=== PATIENT | male | born 1960 | race Caucasian/White ===

== ENCOUNTER 2023-04-27 01:00 | Inpatient (IN) | payer MEDICARE, MEDICAID, SELFPAY ==
[2023-04-27] VITALS (48 sets, daily range): BP systolic 127–179; BP diastolic 88–113; PULSE 82–106; RESP 18–33; TEMP 36.3–36.8; O2SAT 90–100; BMI 45.4
--- NOTE | 2023-04-27 | ECHO_ITS ---
Patient Info Name: Cyrus Harris Age: 62 years : 1960 Gender: Male Ht: 68 in Wt: 298 lbs BSA: 2.62 m2 HR: 78 bpm BP: 152 / 95 mmHg Heart Rhythm: Sinus Rhythm Technical Quality: Poor Exam Date: 04/27/2023 12:16 PM Exam Location: Echo Lab Exam Room: ICU9 Patient Status: Inpatient Admit Date: 04/27/2023 Staff Ordering Physician: Hien Zamora Tour Production Supervisor: Pham Pierce RDCS Attending Provider: Albert Sandoval MD Referring Physician: Sera MATUTE; Exam Type: CA echo dop color flow w con Study Info Indications - STEMI Complete two-dimensional, color flow and Doppler transthoracic echocardiogram is performed with contrast to opacify the left ventricle and to improve the deliniation of the left ventricle endocardial borders. Contrast/Agitated Saline Contrast/Ag. Saline: Definity Amount: 2.00 ml Administered By: Pham Pierce [facility] Existing IV Access: Yes IV Access Condition: patent with no signs of infiltration Reason for Poor Study: patient body habitus Summary 1. Technically difficultExam because of obesity, definity contrast utilizedTo improveExam quality. 2. SevereHypokinesis toNear akinesisOf the anteriorWallIn the midportion to the apexAs well as of the septum. 3. Moderately reduced global systolic function. 4. Grade 1 diastolic noncompliance. 5. No significant valvular dysfunction. Left Ventricle Left ventricular chamber dimension is normal. Left ventricular systolic function is mildly reduced, estimated at 35-40%. The left ventricular diastolic function is grade I diastolic dysfunction. Right Ventricle Right ventricular chamber dimension is normal. Left Atria Left atrial chamber dimension is normal. Right Atria Right atrial chamber dimension is normal. Aortic Valve The aortic valve is normal. Pulmonic Valve The pulmonic valve is not well visualized. Mitral Valve The mitral valve has normal leaflets. Tricuspid Valve The tricuspid valve leaflets are not well visualized. Pericardium/Pleural The pericardium appears normal. Aorta The aortic root size at the sinus of Valsalva is normal. Left Ventricular Outflow Tract Name Value Normal LVOT 2D LVOT Diameter 2.11 cm LVOT Doppler LVOT Peak Gradient 4 mmHg LVOT Mean Gradient 3 mmHg LVOT VTI 18.51 cm LVOT VTI/AV VTI Ratio 0.97 LVOT Stroke Volume 64.58 ml LVOT CO 16.16 l/min LVOT CI 6.17 L/min/m2 Pulmonic Valve Name Value Normal PV Doppler PV Peak Gradient 2 mmHg Mitral Valve Name Value Normal MV Dopp
--- NOTE | ~2023-04-27 | XR_ITS ---
XR chest 1V portable 05/03/2023 08:59 Indication: COPD exacerbation Procedure: AP portable chest Comparison: 04/29/2023 Findings: Developing left basilar airspace disease. No pleural effusion. No pneumothorax. The lungs a re hyperinflated which is consistent with, but not diagnostic of chronic obstructive pulmonary diseas e. There is 12 mm nodule in the left mid thorax. Impression: 1: Left basilar airspace disease may represent atelectasis or pneumonia. 2: Pulmonary nodule left mid thorax measuring 12 mm. Cannot exclude malignancy. Reviewed, dictated and finalized at location A. Impression: 1: Left basilar airspace disease may represent atelectasis or pneumonia. 2: Pulmonary nodule left mid thorax measuring 12 mm. Cannot exclude malignancy.
--- NOTE | ~2023-04-27 | XR_ITS ---
EXAMINATION: XR chest 1V portable INDICATION: Pacemaker insertion TECHNIQUE: Portable AP chest at 1511 hours COMPARISON: 05/03/2023 FINDINGS: The lungs are free of acute opacities. No pleural effusion or pneumothorax. A dual-lead car diac pacemaker of the left chest wall has been inserted which ends with leads in expected locations. A right internal jugular catheter is noted. The heart size is normal. IMPRESSION: 1. Dual-lead pacemaker insertion. No pneumothorax. Reviewed, dictated and finalized at location F.
--- NOTE | ~2023-04-27 | US_ITS ---
US venous doppler [facility] DATE: 04/28/2023 15:50 INDICATION: Bilateral lower extremity edema TECHNIQUE: Real-time and color flow imaging and Doppler analysis of the veins of both lower extremiti es COMPARISON: None FINDINGS: The greater saphenous veins are patent. There is spontaneous and phasic flow and normal aug mentation and color flow signal and normal compression of the deep veins of both lower extremities. IMPRESSION: No evidence of deep venous thrombosis of the lower extremities Reviewed, dictated and finalized at Location A. Reviewed, dictated and finalized at location L.
--- NOTE | ~2023-04-27 | CT_ITS ---
EXAMINATION: CTA chest PE protocol DATE: 05/01/2023 16:27 INDICATION: Shortness of breath TECHNIQUE: Computed tomography angiography (CTA) of the chest was performed with 100 mL Omnipaque-350 intravenous contrast timed to evaluate the pulmonary arteries. Coronal maximum intensity projection 3D-reconstructions were created by the technologist. The dose-length product (DLP) was 959.32 mGy-cm. Automated exposure control and iterative reconstruction technique were employed. COMPARISON: None. FINDINGS: The pulmonary arteries are well-opacified. No pulmonary embolism is identified. Respiratory motion slightly limits the examination. There is an 11 mm nodule of the left upper lobe. Emphysema i s noted in the lung apices. There are subpleural airspace opacities of the lingula. There is consolid ation medially in the left lower lobe. Mild dependent atelectasis is noted. No pleural effusion or pn eumothorax. The heart size is normal. IMPRESSION: 1. No pulmonary embolus identified. 2. Airspace opacities in the lingula and left lower lobe, consistent with pneumonia. 3. 11 mm nodule of the left upper lobe which may be infectious or inflammatory. Follow-up low-dose CT in three months is recommended. Reviewed, dictated and finalized at location F. IMPRESSION: 1. No pulmonary embolus identified. 2. Airspace opacities in the lingula and left lower lobe, consistent with pneum onia. 3. 11 mm nodule of the left upper lobe which may be infectious or inflammatory. Follow-up low-dose CT in three months is recommended.
--- NOTE | ~2023-04-27 | XR_ITS ---
EXAMINATION: XR chest 2V DATE: 05/05/2023 14:53 INDICATION: Pacemaker insertion TECHNIQUE: Frontal and lateral views of the chest are obtained COMPARISON: 05/04/2023 FINDINGS: There are minimal airspace opacities of the lung bases. No pleural effusion or pneumothorax . The right internal jugular catheter has been removed. The heart size is normal for technique. There is mild thoracic spondylosis. A dual-lead cardiac pacemaker of the left chest wall ends with leads i n expected locations. IMPRESSION: 1. Minimal bibasilar airspace opacities, consistent with atelectasis versus pneumonia. Reviewed, dictated and finalized at location F. IMPRESSION: 1. Minimal bibasilar airspace opacities, consistent with atelectasis versus pne umonia.
--- NOTE | ~2023-04-27 | XR_ITS ---
EXAMINATION: XR chest 1V portable DATE: 04/29/2023 12:36 INDICATION: Wheezing. Left ventricular dysfunction. TECHNIQUE: frontal view of the chest was obtained. COMPARISON: Chest radiograph dated 04/27/2023 FINDINGS: Increased airspace opacities in the left lower lung zone which could represent atelectasis or pneumon ia. Right lung remains clear. Increased lucency with architectural distortion at the upper lung zones suggestive of emphysema. No pleural effusion or pneumothorax. The cardiomediastinal silhouette is wi thin normal limits for AP technique. IMPRESSION: 1. New opacities in the left lower lung zone which could represent atelectasis or pneumonia. 2. Hyperlucency and architectural distortion at the upper lung zones suspicious for emphysema. Reviewed, dictated and finalized at location A.
--- NOTE | ~2023-04-27 | XR_ITS ---
EXAMINATION: XR chest 1V portable Exam Date/Time: 05/03/2023 14:20 CDT HISTORY: temp. pacer placement Comparison: 05/03/2023 at 8:53 AM. RESULT: Lines, tubes, and devices: Right IJ temporary pacer which appears to terminate over the left ventric le although determination is somewhat limited by overlapping wires. Lungs and pleura: Clear. Cardiomediastinal silhouette: Stable. Other: No acute osseous or upper abdominal finding. IMPRESSION: Right IJ temporary pacer. No acute cardiopulmonary process. Reviewed, dictated and finalized at location K.
--- NOTE | ~2023-04-27 | XR_ITS ---
Portable chest x-ray Comparison: None Clinical History: Myocardial infarction Findings: Questionable minimal basilar haziness. No pleural effusion or pneumothorax. Cardiomediast inal silhouette is unremarkable. Bones and soft tissues are unremarkable. Impression: Minimal bibasilar haziness. Correlate for minimal pulmonary edema or possibly mild interstitial umanzor es related to COPD. Reviewed, dictated and finalized at location . Impression: Minimal bibasilar haziness. Correlate for minimal pulmonary edema or possibly m ild interstitial changes related to COPD.
--- NOTE | 2023-04-27 01:01 | ECG_ITS ---
Measurements Intervals [place] Rate: 99 P: 55 DE: 124 QRS: 58 QRSD: 87 T: 39 QT: 358 QTc: 459 Interpretive Statements SINUS RHYTHM POSSIBLE LEFT ATRIAL ENLARGEMENT INCOMPLETE RIGHT BUNDLE BRANCH BLOCK ANTEROLATERAL ST ELEVATION MYOCARDIAL INFARCT- ACUTE HIGH LATERAL INFARCT, AGE INDETERMINATE ABNORMAL ECG NO PREVIOUS ECG AVAILABLE FOR COMPARISON Electronically Signed On 04-27-2023 6:37:25 CDT by Riaz Gonzalez D.O.
[2023-04-27] MEDS: ASPIRIN 81 MG CHEWABLE TABLET 324 MG PO (01:16)
--- NOTE | 2023-04-27 01:17 | ED.GENADULT ---
HPI - General Adult General Chief complaint: Chest Pain Stated complaint: Chest pain Time Seen by Provider: 04/27/23 01:03 History of Present Illness HPI narrative: Patient is a 62-year-old gentleman who presents emergency department with chief complaint of chest discomfort. The patient reports that he started having some discomfort this evening reports the pain was not improved by any of his home measures. The patient states his reported constant reports this is different than previous episodes. The patient reports pain radiates to his shoulder blades and down his arms patient does report that he feels a little short of breath with it. The patient reports he has history of hypertension and also takes a water pill due to some peripheral edema. Related Data Allergies Allergy/AdvReac Type Severity Reaction Status Date / Time No Known Allergies Allergy Verified 04/27/23 01:12 Review of Systems Review of Systems: A 10 system review of systems was completed on the patient and is negative except for what is stated in the HPI. Nursing and ancillary documentation was reviewed. Exam Narrative: GENERAL: Well-appearing, well-nourished, and in no acute distress. HEAD: Normocephalic, atraumatic. EYES: PERRLA and EOMI. ENT: Nares clear, no rhinorrhea or epistaxis. Mucous membranes moist. NECK: Supple. CHEST: Clear to auscultation. No respiratory distress. HEART: Regular rate and rhythm. No murmur heard. Normal peripheral pulses. ABDOMEN: Soft, nontender, nondistended, normal active bowel sounds. EXTREMITIES: Normal range of motion. 1+ edema. SKIN: Warm, dry, no rash. NEURO: No focal deficits. Alert and oriented x3. PSYCH: Normal mood and affect. Course Vital Signs Vital signs: Vital Signs Temperature 36.4 C L 04/27/23 01:06 Pulse Rate 100 04/27/23 01:06 Respiratory Rate 33 H 04/27/23 01:06 Blood Pressure 170/113 H 04/27/23 01:06 Pulse Oximetry 99 04/27/23 01:06 Oxygen Delivery Room Air 04/27/23 01:06 Temperature 36.4 C L 04/27/23 01:06 Pulse Rate 99 04/27/23 01:06 Respiratory Rate 33 H 04/27/23 01:06 Blood Pressure 170/113 H 04/27/23 01:06 Pulse Oximetry 98 04/27/23 01:06 Oxygen Delivery Room Air 04/27/23 01:06 Medical Decision Making MDM Narrative Medical decision making narrative: Differential diagnosis includes STEMI, non-STEMI, ACS, dysrhythmia, electrolyte abnormality, noncardiac chest pain EKG showed evidence of acute ST-elevation IA. Immediate notification of the STEMI pathway was started Dr. Huerta was contacted and the poultry farm laborer team has been contacted. The patient was given heparin bolus Brilinta aspirin Vital Signs Vital Signs: Vital Signs Temperature 36.4 C L 04/27/23 01:06 Pulse Rate 100 04/27/23 01:06 Respiratory Rate 33 H 04/27/23 01:06 Blood Pressure 170/113 H 04/27/23 01:06 Pulse Oximetry 99 04/27/23 01:06 Oxygen Delivery Room Air 04/27/23 01:06 Temperature 36.4 C L 04/27/23 01:06 Pulse Rate 99 04/27/23 01:06 Respiratory Rate 33 H 04/27/23 01:06 Blood Pressure 170/113 H 04/27/23 01:06 Pulse Oximetry 98 04/27/23 01:06 Oxygen Delivery Room Air 04/27/23 01:06 Critical Care Time Critical Care Time Critical Care Time: Yes Total Critical Care Time: 30 Discharge Plan Discharge Clinical Impression: Acute ST elevation myocardial infarction Patient Disposition: Still a Patient Condition: Stable Follow-up/Referrals: Eddie,Fernando Nicholas MD [Primary Care Provider] - Time of Disposition: :
[2023-04-27] MEDS: ONDANSETRON INJ 4 MG/2 ML VIAL IV PUSH (01:18)
[2023-04-27] MEDS: TICAGRELOR 90 MG TABLET 180 MG PO (01:18)
[2023-04-27] MEDS: SODIUM CHLORIDE 0.9% IV 1,000 ML 30 ML IV CONT (01:20)
[2023-04-27] MEDS: HEPARIN SODIUM 5,000 UNITS/ML VIAL 4000 UNITS IV PUSH (01:21)
[2023-04-27 01:25] LABS: Basophils Absolute Auto 0.1 K/mm3 (0.0-0.1); Basophils Percent Auto 0.6 % (0.2-1.2); Eosinophils Absolute Auto 0.4 K/mm3 (0-0.3); Hematocrit 54.7 % (42.0-52.0); Hemoglobin 17.7 g/dL (14.0-18.0); Immature Granulocyte Absolute 0.04 K/mm3 (0.00-0.031); Immature Granulocyte Percent A 0.3 % (0-0.5); Lymphocytes Absolute Auto 1.52 K/mm3 (0.9-3.2); Lymphocytes Percent Auto 12.8 % (18.3-44.2); Mean Corpuscular HGB Conc 32.4 g/dl (32-36); Mean Corpuscular Hemoglobin 27.3 pg (26-34); Mean Corpuscular Volume 84.3 fl (80-100); Mean Platelet Volume 10.5 fl (7.4-10.4); Monocytes Absolute Auto 0.6 K/mm3 (0.1-0.6); Monocytes Percent Auto 5.4 % (2.6-8.5); Neutrophils Absolute Auto 9.3 K/mm3 (1.3-6.7); Neutrophils Percent Auto 77.9 % (45.5-73.1); Platelet Count Result 213 k/mm3 (150-375); Red Blood Count 6.49 M/mm3 (4.6-6.20); Red Cell Distribution Width 14.9 % (11.5-14.5); White Blood Count 11.9 K/mm3 (4.5-10.0)
[2023-04-27] MEDS: MORPHINE SULFATE (*CRX) 2 MG/ML INJ IV PUSH (01:26)
[2023-04-27 01:36] LABS: INR 0.9; Prothrombin Time 12.6 Seconds (11.1-14.7)
[2023-04-27] MEDS: NITROGLYCERIN/D5W 200 MCG/ML 50 MG/250 ML BTL IV CONT (01:41)
[2023-04-27 02:13] LABS: Alanine Aminotransferase 34 U/L (6-50); Albumin Level 4.7 g/dL (3.5-5.1); Alkaline Phosphatase 87 U/L (38-126); Anion Gap 9 mmol/L (8-16); Aspartate Amino Transferase 39 U/L (17-59); Bilirubin,Total 0.6 mg/dL (0.2-1.3); Blood Urea Nitrogen 24 mg/dL (9-20); Calcium 9.4 mg/dL (8.4-10.2); Carbon Dioxide 27 mmol/L (22-30); Chloride 105 mmol/L (98-107); Estimated CRCL calculation 135 ml/min; Estimated Glomerular Filt Rate > 60; Glucose 140 mg/dL (65-110); Lipase 67 U/L (23-300); Potassium 4.2 mmol/L (3.4-5.0); Sodium 141 mmol/L (137-145)
--- NOTE | 2023-04-27 02:23 | SUR.OPER ---
Dr. Sandoval made aware of elevated Troponin during Cardiac Cath by Anny Vann RN on 04/27/2023 at 0224.
[2023-04-27 02:24] LABS: Troponin I 0.416 ng/mL (0.000-0.034)
--- NOTE | 2023-04-27 03:08 | ECG_ITS ---
Measurements Intervals [place] Rate: 105 P: 72 WA: 148 QRS: 85 QRSD: 94 T: 95 QT: 369 QTc: 488 Interpretive Statements SINUS TACHYCARDIA LOW QRS VOLTAGE IN PRECORDIAL LEADS ANTERIOR ST ELEVATION MYOCARDIAL INFARCT- ACUTE BASELINE ARTIFACT- V3-V6 ABNORMAL ECG COMPARED TO ECG 04/27/2023 01:10:[address] NOW PRESENT [address] ELEVATION IMPROVING Electronically Signed On 04-27-2023 6:42:07 CDT by Riaz Gonzalez D.O.
--- NOTE | 2023-04-27 03:12 | PM.IMHP ---
H&P: HPI History of Present Illness Date/Time: 04/27/23 03:12 Chief Complaint: chest pain Narrative: this is a 62-year-old man with history of hypertension presenting with acute chest pain in the middle the night. His electrocardiogram shows acute anterior wall current of injury. He reports no prior history of coronary artery disease. He states he is disabled and Smokes cigarettes. Remainder of the history is truncated as he is being prepared for emergency angiography Review of Systems Review of Systems: ROS unobtainable: Yes unobtainable due to medical condition Meds Home Medications and Allergies Allergies Allergy/AdvReac Type Severity Reaction Status Date / Time No Known Allergies Allergy Verified 04/27/23 01:12 Vital Signs Vital Signs - 24 hr 04/27/23 01:06 04/27/23 01:06 04/27/23 01:06 Temperature 36.4 C L Pulse Rate 100 99 Respiratory Rate 33 H Blood Pressure 170/113 H Pulse Oximetry 99 98 Oxygen Delivery Room Air Room Air 04/27/23 01:41 04/27/23 01:29 Temperature Pulse Rate 96 98 Respiratory Rate 25 H Blood Pressure 179/113 H Pulse Oximetry 100 Oxygen Delivery Exam Const: Other: obese white male in moderate distress with chest pain HENMT: Mouth: Yes moist mucous membranes Eyes: Sclera: sclerae normal Neck: Neck: supple Other: carotid pulses are intact bilaterally JVD is difficult to discern because of obesity Resp: Effort & Inspection: normal respiratory effort Auscultation: clear to auscultation bilaterally Other: breath sounds are distant but essentially clear Cardio: Rate: regular rate Rhythm: regular rhythm Other: PMI is not palpable no audible murmur or gallop GI: GI Palp: Yes Soft to palpation Auscultation: normal bowel sounds Skin: General skin exam: normal color Neuro: Other: alert and oriented x3 Extrem: Other: adequate perfusion, mild peripheral edema H&P: Results Labs Labs: Short CBC 04/27/23 Range/Units 01:20 WBC 11.9 H (4.5-10.0) K/mm3 Hgb 17.7 (14.0-18.0) g/dL Hct 54.7 H (42.0-52.0) % Plt Count 213 (150-375) k/mm3 [facility] 04/27/23 01:20 Sodium 141 Potassium 4.2 Chloride 105 Carbon Dioxide 27 BUN 24 H Creatinine 0.70 Glucose 140 H Calcium 9.4 Cardiac Enzymes 04/27/23 04/27/23 Range/Units 01:20 01:25 Troponin I 0.416 H* Cancelled (0.000-0.034) ng/mL Liver Function 04/27/23 Range/Units 01:20 Total Bilirubin 0.6 (0.2-1.3) mg/dL AST 39 (17-59) U/L ALT 34 (6-50) U/L Alkaline Phosphatase 87 (38-126) U/L Albumin 4.7 (3.5-5.1) g/dL Assessment and Plan Assessment and plan (1) Acute ST elevation myocardial infarction: Code(s): I21.3 - ST elevation (STEMI) myocardial infarction of unspecified site Status: Acute Plan this is a 62-year-old obese gentleman tobacco smoker who presents in the middle night with chest pain and acute anterior wall ME. Preparations are being made for emergency angiography and revascularization. Albert Sandoval MD FACC
--- NOTE | 2023-04-27 03:15 | WPDCARDPROC ---
Cardiac Cath Procedure Note Date of procedure:: 04/27/23 Performing physician:: Albert Sandoval MD Indication:: acute anterior wall FL Brief clinical history:: this is a 62-year-old man with hypertension obesity and cigarette smoking. He presents in the middle night with chest pain and acute anterior wall infarction Procedure Procedure performed:: emergency coronary angiography emergency PCI(KELLY) to the LAD Sedation/Medication given:: fentanyl 50 mg Versed 2 mg case start time 2:15 a.m. case end time 2:56 a.m. sedation provided by Willow Alexander RN, trained observer Access site:: right femoral artery Estimated blood loss:: 30 cc Procedure note:: patient was brought to the cardiac catheterization lab in the emergency setting and the right femoral triangle was prepped and draped in the usual fashion. Anesthesia was provided with 1% lidocaine infiltrated locally. Using the modified Seldinger technique the right femoral artery was punctured and a 6 [place] vascular sheath was placed. After this I used a 6 [place] JL4 guiding catheter to engage and inject the left coronary artery in multiple projections. PCI of the proximal LAD was then recommended and carried out as detailed below. The patient had received aspirin 180 mg of Brilinta in the emergency department. He received no additional anti-platelet therapy in the photographic laboratory supervisor. He was anticoagulated with bolus and infusion of Angiomax for this PCI. Following completion of left anterior descending intervention is detailed below they guiding catheter was removed and a 5 [place] JR4 catheter used to engage and inject the right coronary artery in orthogonal projections. The procedure was then terminated and the sheath was sutured into position the patient was taken to the ICU for post FL /PCI recovery. Findings:: Hemodynamics: Central aortic pressure was 138/84, left ventricle was not entered during this procedure the left main coronary artery is large in caliber and widely patent the LAD is a large caliber vessel which is 100% occluded proximal. The circumflex is a moderate to large caliber vessel giving rise to the large OM branch and a smaller posterior system. The circumflex has no significant disease. The right coronary artery is medium in caliber and dominant to the posterior circulation. The right coronary artery is free of disease. Intervention: The was wired using a 0.014 BMW coronary guidewire. As the vessel was occluded it was initially unclear as to the position of the wire distally in the true LAD or in a diagonal branch. The occluded segment was then pre-dilated using a 2.5 x 25 mm Panterra balloon. Following this inflation there was SONYA 3 flow restored in the LAD and it was clear the wire was in the LAD proper. This was a fairly long lesion this was a large vessel it was then dilated with a 3.5 by 30 mm balloon of the same type. The target lesion was then improved there was evidence of a visible dissection flap but distal to the target lesion following this inflation. After this a series of stents were placed from the mid LAD back to the proximal as follows: 3.5 by 35, 3.5 x 30, 4.0 x 30. All Plasticell drug-eluting stents. Following deployment of these devices the LAD was widely patent with an excellent angiographic result no residual stenosis dissection or distal embolization and there was SONYA 3 flow in the entire vessel. There is mild to moderate stenosis at the origin the proximal diagonal branch which was in the area stented this is remains patent with SONYA 3 flow in it following stenting of the LAD. Conclusion:: 1. Right coronary dominant circulation presenting with acute anterior wall FL with 100% proximal occlusion of the large LAD. 2. No significant circumflex or right coronary disease 3. successful but somewhat challenging revascularization requiring 3 drug-eluting stents from the midportion of the LAD back to the
[2023-04-27 05:00] LABS: Anion Gap 6 mmol/L (8-16); Blood Urea Nitrogen 22 mg/dL (9-20); Carbon Dioxide 30 mmol/L (22-30); Chloride 104 mmol/L (98-107); Cholesterol 231 mg/dL (0-200); Estimated CRCL calculation 135 ml/min; Estimated Glomerular Filt Rate > 60; Glucose 141 mg/dL (65-110); HDL Direct 34 mg/dL; Potassium 3.8 mmol/L (3.4-5.0); Sodium 140 mmol/L (137-145); Triglycerides 122 mg/dL (<150)
[2023-04-27 05:02] LABS: INR 3.4; Prothrombin Time 36.8 Seconds (11.1-14.7)
[2023-04-27 05:04] LABS: Partial Thromboplastin Time 127.3 Seconds (22.3-36.8)
[2023-04-27 05:11] LABS: LDL Cholesterol Direct 162 mg/dL
[2023-04-27] MEDS: IPRATROPIUM 0.5 MG/ALBUTEROL SULFATE 2.5 MG AMPUL.NEB 3 ML INHALATION ×3 (07:26→20:20)
[2023-04-27] MEDS: SODIUM CHLORIDE 0.9% IV 1,000 ML 125 ML IV CONT (07:46)
--- NOTE | 2023-04-27 07:51 | ADMGEN ---
This patient, Cyrus Harris, was admitted to Intensive Care Unit-9 at 0315. Patient/family oriented to hospital policies and general routines including ID bracelet, bed and alarms, visiting hours, pain management, procedures, bathroom and other care routines, personal items, smoking policy, room service/diet, and visiting hours. Information on how to activate the Rapid Response Team has been discussed. Patient/Family are encouraged to report perceived risks to care and to ask questions if they do not understand what they are told or what they should do.
[2023-04-27 07:56] LABS: Troponin I > 80.000 ng/mL (0.000-0.034)
[2023-04-27 09:08] LABS: NT Pro B Type Natriuretic Pept 1650 pg/mL (19.9-100)
--- NOTE | 2023-04-27 09:12 | PM.PNCARD ---
Progress Note: A&P Assessment and Plan (1) Acute ST elevation myocardial infarction: Code(s): I21.3 - ST elevation (STEMI) myocardial infarction of unspecified site Status: Acute Assessment and Plan: Presents with chest pain and EKG evidence of acute anterior wall CA. angiogram revealed right coronary dominant circulation with 100% proximal occlusion of the large LAD. He is now s/p PCI to the LAD with KELLY x 3 from the midportion of the LAD back to the proximal segment of the artery to cover the lesion as well as ensure treating a dissection flap that was resulting from the initial pre dilatation of the target lesion. Echo shows overall mildly reduced LV systolic function with EF 35 - 40% with severe hypokinesis to near akinesis of the anterior wall in the midportion to the apex as well as of the septum. Grade I diastolic dysfunction. --DAPT with ASA in definitely and Brilinta for one year --Continue beta robert, ARB --Will increase losartan to 50mg daily as he remains hypertensive --Continue statin --Risk factor modification for CAD including immediate smoking cessation --Referral to cardiac rehab --Anticipate another 48 hours in the hospital --OK to downgrade to IMU status today (2) CAD (coronary artery disease): Code(s): I25.10 - Atherosclerotic heart disease of [place] coronary artery without angina pectoris Status: Acute Assessment and Plan: As above. Continue DAPT, statin. (3) Lower extremity edema: Code(s): R60.0 - Localized edema Status: Acute Assessment and Plan: States this has been persistent for ~5 years. --IV furosemide and GENARO hose. (4) Hypertension: Code(s): I10 - Essential (primary) hypertension Status: Acute Assessment and Plan: --Increase losartan to 50mg daily and coreg to 12.5mg b.i.d. --add smlodipine 5mg daily (5) Smoking: Code(s): F17.200 - Nicotine dependence, unspecified, uncomplicated Status: Acute Assessment and Plan: Smoking cessation Plan Subjective Date/time seen: 04/27/23 09:12 Interval history: Cardiology follow up for CAD, STEMI Feels well this morning. Echo just performed. Denies any chest pain. Has some shortness of breath and edema but no different than his baseline. Review of Systems Review of Systems: ROS unobtainable: Yes unobtainable due to medical condition Exam Const: Other: obese white male lying comfortably in bed in the ICU HENMT: Mouth: Yes moist mucous membranes Eyes: Sclera: sclerae normal Neck: Neck: supple Other: carotid pulses are intact bilaterally JVD is difficult to discern because of obesity Resp: Effort & Inspection: normal respiratory effort Auscultation: not clear to auscultation bilaterally and wheezes Cardio: Rate: regular rate Rhythm: regular rhythm Other: PMI is not palpable no audible murmur or gallop GI: Auscultation: normal bowel sounds Skin: General skin exam: normal color Neuro: Other: alert and oriented x3 Extrem: Other: adequate perfusion, mild peripheral edema Objective Data Vital Signs Vital Signs: Vital Signs - 24 hr 04/27/23 01:06 04/27/23 01:06 04/27/23 01:06 Temperature 36.4 C L Pulse Rate 100 99 Pulse Rate [Bilateral Pedal (Dorsalis Pedis) Doppler] Respiratory Rate 33 H Blood Pressure 170/113 H Pulse Oximetry 99 98 Oxygen Delivery Room Air Room Air Oxygen Flow Rate 04/27/23 01:41 04/27/23 01:29 04/27/23 03:17 Temperature Pulse Rate 96 98 101 H Pulse Rate [Bilateral Pedal (Dorsalis Pedis) Doppler] Respiratory Rate 25 H 24 H Blood Pressure 179/113 H 152/109 H Pulse Oximetry 100 94 Oxygen Delivery Oxygen Flow Rate 04/27/23 03:30 04/27/23 04:07 04/27/23 04:15 Temperature Pulse Rate 102 H 102 H Pulse Rate [Bilateral Pedal (Dorsalis Pedis) Doppler] Respiratory Rate 24 H 20 Blood Pressure 147/91 H 139/95 H Pulse Ox
[2023-04-27 09:37] LABS: MRSA (PCR) NOT DETECTED (NOT DETECTE)
--- NOTE | 2023-04-27 09:45 | WPDCNINT ---
Assessment and Plan Assessment and plan (1) Acute ST elevation myocardial infarction: Code(s): I21.3 - ST elevation (STEMI) myocardial infarction of unspecified site Status: Acute Assessment and Plan: Anterior wall STEMI status post cardiac catheterization Conclusion:: 1.? ? Right coronary dominant circulation presenting with acute anterior wall MS with 100% proximal occlusion of the large LAD. 2.? ? No significant circumflex or right coronary disease 3. ? successful but somewhat challenging revascularization requiring 3 drug-eluting stents from the midportion of the LAD back to the proximal segment of the artery to cover the lesion as well as ensure treating a dissection flap that was resulting from the initial pre dilatation of the target lesion. Aspirin Crestor Brilinta Coreg losartan development vice president Check echocardiogram Consult and encouraged to quit smoking (2) COPD exacerbation: Code(s): J44.1 - Chronic obstructive pulmonary disease with (acute) exacerbation Status: Acute Assessment and Plan: Patient clearly has undiagnosed COPD from his exam, imaging and constant coughing. He appears to be in a COPD exacerbation Will start scheduled bronchodilator and prednisone taper Hold further fluids (3) Smoking: Code(s): F17.200 - Nicotine dependence, unspecified, uncomplicated Status: Acute Assessment and Plan: Patient smokes 2-4 packs a day and has been smoking for 50 years. Patient was strongly counseled and encouraged to quit smoking (4) Hypertension: Code(s): I10 - Essential (primary) hypertension Status: Acute Assessment and Plan: Patient restarted on Coreg losartan (5) Lower extremity edema: Code(s): R60.0 - Localized edema Status: Acute Assessment and Plan: I suspect patient has pulmonary hypertension and cor pulmonale from extensive smoking He has lower extremity edema BNP 1650 Check echocardiogram Hold further IV fluids Will hold diuresis at this time since patient has received significant amount. Will start Lasix from tomorrow Plan DVT prophylaxis -Lovenox Nutrition -heart healthy diet Code Status - Full Code Track Broom Operator Consult Note Consult date: 04/27/23 Reason for consult: STEMI HPI: Cyrus Harris is a 62 year old male history of hypertension, sciatica, heavy tobacco abuse and chronic lower extremity edema presented yesterday to ER with chief complaint of pain in his chest. Chest pain started around 9:30 p.m.. Burning sensation in the middle of chest with radiation to back and both arms, 10/10 severe, associated with shortness of breath and nausea but no vomiting. Review of system was also positive for chronic cough and lower extremity swelling which is also chronic. Denies any other complaints. All other systems were reviewed and were negative In ER patient was found to be having anterior wall ST segment elevation MS. Patient was taken to cardiac catheterization lab and underwent cardiac catheterization which showed Conclusion:: 1.? ? Right coronary dominant circulation presenting with acute anterior wall MS with 100% proximal occlusion of the large LAD. 2.? ? No significant circumflex or right coronary disease 3. ? successful but somewhat challenging revascularization requiring 3 drug-eluting stents from the midportion of the LAD back to the proximal segment of the artery to cover the lesion as well as ensure treating a dissection flap that was resulting from the initial pre dilatation of the target lesion. This morning he states the pain significantly improved although not completely gone away and rates it / Review of Systems Review of Systems: All systems reviewed & are unremarkable except as noted in HPI and below (HPI) [facility] Past Medical History Medical History Hypertension Lower extremity edema Sciatic nerve pain Smoking Family History Family History (Updated 04/27/23 @ 05:27 by Fanny
[2023-04-27] MEDS: LOSARTAN POTASSIUM 25 MG TABLET PO (10:12)
[2023-04-27] MEDS: ASPIRIN 81 MG CHEWABLE TABLET PO (10:12)
[2023-04-27] MEDS: predniSONE 10 MG TABLET 30 MG PO (10:12)
[2023-04-27] MEDS: carvediloL 6.25 MG TABLET PO (10:12)
[2023-04-27] MEDS: TICAGRELOR 90 MG TABLET PO ×2 (10:13→21:13)
[2023-04-27] MEDS: ROSUVASTATIN 10 MG TABLET 20 MG PO (10:13)
[2023-04-27] MEDS: ENOXAPARIN 40 MG/0.4 ML SYRINGE SUB-Q (10:28)
[2023-04-27 11:20] LABS: Troponin I > 80.000 ng/mL (0.000-0.034)
[2023-04-27] MEDS: PERFLUTREN LIPID MICROSPHERES 1.5 ML VIAL DILUTED TO 10 ML TOTAL VOLUME IV PUSH (11:50)
--- NOTE | 2023-04-27 15:14 | IVDEFINITY ---
Prior to administration of IV Definity the patient was educated on the risks and benefits of the imaging enhancing agent including potential adverse side effects. The patient verbalized understanding. Allergies were verified. No exclusion criteria were identified and at least one of the following inclusion criteria were met: 1) physician request, 2) patient technically difficult to image (per the [place] [employer]chocardi[employer] guidelines of two or more segments not discernable within the apical view), or 3) questionable left ventricular function. ?
[2023-04-27] MEDS: amLODIPine BESYLATE 5 MG TABLET PO (17:12)
[2023-04-27] MEDS: carvediloL 12.5 MG TABLET PO (21:13)
[2023-04-28] VITALS (26 sets, daily range): BP systolic 95–150; BP diastolic 58–96; PULSE 80–105; RESP 20–35; TEMP 36.6–36.8; O2SAT 88–96
[2023-04-28] MEDS: IPRATROPIUM 0.5 MG/ALBUTEROL SULFATE 2.5 MG AMPUL.NEB 3 ML INHALATION ×6 (01:18→23:33)
[2023-04-28 04:35] LABS: Hematocrit 53.1 % (42.0-52.0); Hemoglobin 17.1 g/dL (14.0-18.0); Mean Corpuscular HGB Conc 32.2 g/dl (32-36); Mean Corpuscular Hemoglobin 27.6 pg (26-34); Mean Corpuscular Volume 85.6 fl (80-100); Mean Platelet Volume 9.8 fl (7.4-10.4); Platelet Count Result 197 k/mm3 (150-375); White Blood Count 14.7 K/mm3 (4.5-10.0)
[2023-04-28 05:13] LABS: Alanine Aminotransferase 81 U/L (6-50); Albumin Level 4.2 g/dL (3.5-5.1); Alkaline Phosphatase 89 U/L (38-126); Anion Gap 5 mmol/L (8-16); Aspartate Amino Transferase 175 U/L (17-59); Bilirubin,Total 0.8 mg/dL (0.2-1.3); Blood Urea Nitrogen 18 mg/dL (9-20); Calcium 9.2 mg/dL (8.4-10.2); Carbon Dioxide 34 mmol/L (22-30); Chloride 103 mmol/L (98-107); Estimated CRCL calculation 125 ml/min; Estimated Glomerular Filt Rate > 60; Glucose 109 mg/dL (65-110); Magnesium 2.3 mg/dL (1.6-2.3); Potassium 3.5 mmol/L (3.4-5.0); Sodium 142 mmol/L (137-145)
[2023-04-28] MEDS: carvediloL 12.5 MG TABLET PO ×2 (09:03→21:08)
[2023-04-28] MEDS: ROSUVASTATIN 10 MG TABLET 20 MG PO (09:03)
[2023-04-28] MEDS: ASPIRIN 81 MG CHEWABLE TABLET PO (09:03)
[2023-04-28] MEDS: amLODIPine BESYLATE 5 MG TABLET PO (09:03)
[2023-04-28] MEDS: ENOXAPARIN 40 MG/0.4 ML SYRINGE SUB-Q (09:03)
[2023-04-28] MEDS: FUROSEMIDE INJ 40 MG/4 ML VIAL IV PUSH (09:04)
[2023-04-28] MEDS: predniSONE 10 MG TABLET 30 MG PO (09:04)
[2023-04-28] MEDS: TICAGRELOR 90 MG TABLET PO ×2 (09:04→21:08)
--- NOTE | 2023-04-28 11:27 | PM.PNCARD ---
Progress Note: A&P Assessment and Plan (1) Acute ST elevation myocardial infarction: Code(s): I21.3 - ST elevation (STEMI) myocardial infarction of unspecified site Status: Acute Assessment and Plan: Presents with chest pain and EKG evidence of acute anterior wall NC. angiogram revealed right coronary dominant circulation with 100% proximal occlusion of the large LAD. He is now s/p PCI to the LAD with KELLY x 3 from the midportion of the LAD back to the proximal segment of the artery to cover the lesion as well as ensure treating a dissection flap that was resulting from the initial pre dilatation of the target lesion. Echo shows overall mildly reduced LV systolic function with EF 35 - 40% with severe hypokinesis to near akinesis of the anterior wall in the midportion to the apex as well as of the septum. Grade I diastolic dysfunction. --DAPT with ASA in definitely and Brilinta for one year --Continue beta robert, ARB --Continue statin --Risk factor modification for CAD including immediate smoking cessation --Referral to cardiac rehab --Mobilize patient out of bed to the chair today --Anticipate another 24 hours in the hospital (2) CAD (coronary artery disease): Code(s): I25.10 - Atherosclerotic heart disease of [place] coronary artery without angina pectoris Status: Acute Assessment and Plan: As above. Continue DAPT, statin. (3) Lower extremity edema: Code(s): R60.0 - Localized edema Status: Acute Assessment and Plan: States this has been persistent for ~5 years. --IV furosemide and GENARO hose. (4) Hypertension: Code(s): I10 - Essential (primary) hypertension Status: Acute Assessment and Plan: --Increase losartan to 50mg daily and coreg to 12.5mg b.i.d. --add smlodipine 5mg daily (5) Smoking: Code(s): F17.200 - Nicotine dependence, unspecified, uncomplicated Status: Acute Assessment and Plan: Smoking cessation Plan Placed consult for hospitalist for COPD management Subjective Date/time seen: 04/28/23 11:27 Interval history: Cardiology follow up for CAD, STEMI Feels well this morning. Echo just performed. Denies any chest pain. Has some shortness of breath and edema but no different than his baseline. Date of service 04/28/2023: Feels okay this morning. Does not have any specific cardiovascular complaints. Review of Systems Review of Systems: ROS unobtainable: Yes unobtainable due to medical condition Exam Const: Other: obese white male lying comfortably in bed in the ICU HENMT: Mouth: Yes moist mucous membranes Eyes: Sclera: sclerae normal Neck: Neck: supple Other: carotid pulses are intact bilaterally JVD is difficult to discern because of obesity Resp: Effort & Inspection: normal respiratory effort and tachypneic Auscultation: not clear to auscultation bilaterally and wheezes anterior and posterior Cardio: Rate: regular rate Rhythm: regular rhythm Other: PMI is not palpable no audible murmur or gallop GI: Auscultation: normal bowel sounds Urinary Catheter: Urinary Catheter: patent and draining Skin: General skin exam: normal color Other: R groin arterial access site free from hematoma Neuro: Other: alert and oriented x3 Extrem: Other: adequate perfusion, mild peripheral edema Objective Data Vital Signs Vital Signs: Vital Signs - 24 hr 04/27/23 12:00 04/27/23 13:18 04/27/23 13:30 Temperature 36.3 C L Pulse Rate 94 97 90 Respiratory Rate 25 H 30 H 23 H Blood Pressure 127/109 H Pulse Oximetry 93 Oxygen Delivery Oxygen Flow Rate 04/27/23 14:00 04/27/23 12:15 04/27/23 12:00 Temperature Pulse Rate 87 97 93 Respiratory Rate 20 20 Blood Pressure 148/109 H 140/90 Pulse Oximetry 93 93 Oxygen Delivery Oxygen Flow Rate 04/27/23 14:00 04/27/23 12:00 04/27/23 16:00 Temperature 36.3 C L Pulse Ra
[2023-04-28] MEDS: LOSARTAN POTASSIUM 50 MG TABLET PO (11:36)
--- NOTE | 2023-04-28 14:22 | WPDCN ---
Assessment and Plan Assessment and plan (1) COPD exacerbation: Code(s): J44.1 - Chronic obstructive pulmonary disease with (acute) exacerbation Status: Acute Assessment and Plan: Clinically the patient has evidence of COPD with exacerbation though has not been formally diagnosed. Continue scheduled bronchodilators and prednisone taper. Mucinex and Cornet ordered to help mobilize secretions. Encouraged follow-up with pulmonology when he returns home. (2) Acute ST elevation myocardial infarction: Onset Date: 04/27/23 Code(s): I21.3 - ST elevation (STEMI) myocardial infarction of unspecified site Status: Acute Assessment and Plan: Patient presented to the ED with chest pain for several hours, found to have ST elevations in V2 through V6. Status post drug-eluting stent x3 to the LAD complicated by dissection flap from dilatation. Started on dual anti-platelet therapy (aspirin and ticagrelor), statin, and beta-robert. (3) Coronary artery disease: Onset Date: 04/2023 Code(s): I25.10 - Atherosclerotic heart disease of [place] coronary artery without angina pectoris Status: Acute Assessment and Plan: Plan is as detailed above. (4) Ischemic cardiomyopathy: Onset Date: 04/2023 Code(s): I25.5 - Ischemic cardiomyopathy Status: Acute Assessment and Plan: Echo: EF of 35 to 40%, hypokinesis to near akinesis of the anterior wall, grade 1 diastolic dysfunction. Started on carvedilol, furosemide, losartan per Cardiology. Lasix 40 mg IV daily for edema with close monitoring of volume status, renal function, and electrolytes. (5) Lower extremity edema: Code(s): R60.0 - Localized edema Status: Acute Assessment and Plan: Chronic for least 5 years per patient report. Due to a combination of obesity, sedentary lifestyle, and diastolic dysfunction. Continue diuresing with Lasix 40 mg daily. Encouraged elevation of lower extremities as much as possible. Lower extremity venous Doppler ultrasounds ordered to rule out DVT. (6) Hypertension: Code(s): I10 - Essential (primary) hypertension Status: Acute Assessment and Plan: Blood pressures were reviewed and they have been running in the 120s to 140s today. Continue amlodipine 5 mg daily, carvedilol 6.25 mg q.12 hours, and losartan 50 mg daily. Continue to monitor closely and make adjustments depending on trends. (7) Tobacco dependence: Code(s): F17.200 - Nicotine dependence, unspecified, uncomplicated Status: Acute Assessment and Plan: He smokes between 2 to 4 packs of cigarettes a day and has for 50 years! Smoking cessation is imperative and was discussed with the patient. He is motivated quit smoking and reports that his girlfriend is also going to try to quit. Plan Thank you for allowing us to participate in this patient's care. Please do not hesitate to contact us with any questions. HPI Data of Consult Date/Time: 04/28/23 15:00 Requesting Physician: Albert Sandoval MD Consult Narrative Reason for consult: Medical management. Narrative: This is a 62-year-old male smoker with suspected chronic obstructive pulmonary disease and hypertension whom the hospitalist service has been consulted for help managing his medical conditions. He was admitted to the hospital early yesterday morning through the emergency department with an acute anterior wall ST-elevation myocardial infarction after presenting with several hours of chest pain. He was taken to the prosthetic lab technician where he was found to have 100% proximal occlusion the LAD status post 3 drug-eluting stents. Revascularization was complicated by a small dissection flap resulting from initial predilatation of the lesion. He has been without chest pain and is doing well in that regard. He reports nearly constant coughing the last couple of days, much worse than his inductor tester
[2023-04-28] MEDS: guaiFENesin 12 HR 600 MG TABCR 1200 MG PO (21:08)
[2023-04-29] VITALS (28 sets, daily range): BP systolic 119–156; BP diastolic 83–93; PULSE 80–99; RESP 17–33; TEMP 36.3–36.8; O2SAT 91–99
[2023-04-29] MEDS: IPRATROPIUM 0.5 MG/ALBUTEROL SULFATE 2.5 MG AMPUL.NEB 3 ML INHALATION ×6 (04:11→23:29)
[2023-04-29 05:12] LABS: Hematocrit 53.1 % (42.0-52.0); Mean Corpuscular Hemoglobin 27.6 pg (26-34); Mean Corpuscular Volume 86.3 fl (80-100); Mean Platelet Volume 10.2 fl (7.4-10.4); Platelet Count Result 214 k/mm3 (150-375); Red Blood Count 6.15 M/mm3 (4.6-6.20); White Blood Count 14.7 K/mm3 (4.5-10.0)
[2023-04-29 05:18] LABS: Alanine Aminotransferase 60 U/L (6-50); Albumin Level 4.2 g/dL (3.5-5.1); Alkaline Phosphatase 81 U/L (38-126); Anion Gap 3 mmol/L (8-16); Aspartate Amino Transferase 67 U/L (17-59); Bilirubin,Total 0.8 mg/dL (0.2-1.3); Blood Urea Nitrogen 23 mg/dL (9-20); Calcium 9.2 mg/dL (8.4-10.2); Carbon Dioxide 37 mmol/L (22-30); Chloride 99 mmol/L (98-107); Estimated CRCL calculation 110 ml/min; Estimated Glomerular Filt Rate > 60; Glucose 110 mg/dL (65-110); Magnesium 2.3 mg/dL (1.6-2.3); Potassium 3.7 mmol/L (3.4-5.0); Sodium 139 mmol/L (137-145)
[2023-04-29] MEDS: ASPIRIN 81 MG CHEWABLE TABLET PO (09:25)
[2023-04-29] MEDS: predniSONE 10 MG TABLET 30 MG PO (09:25)
[2023-04-29] MEDS: carvediloL 12.5 MG TABLET PO ×2 (09:26→21:17)
[2023-04-29] MEDS: LOSARTAN POTASSIUM 50 MG TABLET PO (09:26)
[2023-04-29] MEDS: FUROSEMIDE INJ 40 MG/4 ML VIAL IV PUSH (09:26)
[2023-04-29] MEDS: TICAGRELOR 90 MG TABLET PO ×2 (09:26→21:17)
[2023-04-29] MEDS: ROSUVASTATIN 10 MG TABLET 20 MG PO (09:26)
[2023-04-29] MEDS: ENOXAPARIN 40 MG/0.4 ML SYRINGE SUB-Q (09:26)
[2023-04-29] MEDS: guaiFENesin 12 HR 600 MG TABCR 1200 MG PO ×2 (09:26→21:17)
[2023-04-29] MEDS: amLODIPine BESYLATE 5 MG TABLET PO (09:26)
--- NOTE | 2023-04-29 13:53 | P.PNIM_ITS ---
Progress Note: A&P Assessment and Plan (1) Pneumonia: Code(s): J18.9 - Pneumonia, unspecified organism Status: Acute Assessment and Plan: [place] is [place] 7 [place] [address] Cxr shows BL opacities Plan BC today Start iv zosyn and iv vancomycin D/w cardiology (2) COPD exacerbation: Code(s): J44.1 - Chronic obstructive pulmonary disease with (acute) exacerbation Status: Acute Assessment and Plan: Clinically the patient has evidence of COPD with exacerbation though has not been formally diagnosed. * Continue scheduled bronchodilators and prednisone taper. * Mucinex and Cornet ordered to help mobilize secretions. * pt will benefit from home oxygen assessment prior to Dc (3) Acute ST elevation myocardial infarction: Onset Date: 04/27/23 Code(s): I21.3 - ST elevation (STEMI) myocardial infarction of unspecified site Status: Acute Assessment and Plan: Patient presented to the ED with chest pain for several hours, found to have ST elevations in V2 through V6. * Status post drug-eluting stent x3 to the LAD complicated by dissection flap f rom dilatation. * Started on dual anti-platelet therapy (aspirin and ticagrelor), statin, and beta-robert. (4) Coronary artery disease: Onset Date: 04/2023 Code(s): I25.10 - Atherosclerotic heart disease of [place] coronary artery without angina pectoris Status: Acute Assessment and Plan: Plan is as detailed above. (5) Ischemic cardiomyopathy: Onset Date: 04/2023 Code(s): I25.5 - Ischemic cardiomyopathy Status: Acute Assessment and Plan: Echo: EF of 35 to 40%, hypokinesis to near akinesis of the anterior wall, grade 1 diastolic dysfunction. * Started on carvedilol, furosemide iv + losartan per Cardiology. * (6) Lower extremity edema: Code(s): R60.0 - Localized edema Status: Acute Assessment and Plan: Chronic for least 5 years per patient report. Due to a combination of obesity, sedentary lifestyle, and diastolic dysfunction. * Continue diuresing with Lasix 40 mg daily IV * Encouraged elevation * Venous dopplers are negative (7) Hypertension: Code(s): I10 - Essential (primary) hypertension Status: Acute Assessment and Plan: Blood pressures are stable * Continue amlodipine 5 mg daily, carvedilol 6.25 mg q.12 hours, and losartan 50 mg daily. pt also on iv lasix * continue present care (8) Tobacco dependence: Code(s): F17.200 - Nicotine dependence, unspecified, uncomplicated Status: Acute Assessment and Plan: He smokes between 2 to 4 packs of cigarettes a day and has for 50 years! * Smoking cessation is imperative and was discussed with the patient. * He is motivated quit smoking and reports that his girlfriend is also going to try to quit. Plan Thank you for allowing us to participate in this patient's care. Please do not hesitate to contact us with any questions. Subjective Date/time seen: 04/29/23 13:53 Interval history: 62-year-old male smoker with suspected chronic obstructive pulmonary disease and hypertension whom the hospitalist service has been consulted for help managing his medical conditions. He was admitted to the hospital early yesterday morning through the emergency department with an acute anterior wall ST-elevation myocardial infarction afte
--- NOTE | 2023-04-29 13:53 | PM.IMPN ---
Progress Note: A&P Assessment and Plan (1) Pneumonia: Code(s): J18.9 - Pneumonia, unspecified organism Status: Acute Assessment and Plan: Pt is on 7 [place] [id number] Cxr shows BL opacities Plan BC today Start iv zosyn and iv vancomycin D/w cardiology (2) COPD exacerbation: Code(s): J44.1 - Chronic obstructive pulmonary disease with (acute) exacerbation Status: Acute Assessment and Plan: Clinically the patient has evidence of COPD with exacerbation though has not been formally diagnosed. Continue scheduled bronchodilators and prednisone taper. Mucinex and Cornet ordered to help mobilize secretions. pt will benefit from home oxygen assessment prior to Dc (3) Acute ST elevation myocardial infarction: Onset Date: 04/27/23 Code(s): I21.3 - ST elevation (STEMI) myocardial infarction of unspecified site Status: Acute Assessment and Plan: Patient presented to the ED with chest pain for several hours, found to have ST elevations in V2 through V6. Status post drug-eluting stent x3 to the LAD complicated by dissection flap from dilatation. Started on dual anti-platelet therapy (aspirin and ticagrelor), statin, and beta-robert. (4) Coronary artery disease: Onset Date: 04/2023 Code(s): I25.10 - Atherosclerotic heart disease of [place] coronary artery without angina pectoris Status: Acute Assessment and Plan: Plan is as detailed above. (5) Ischemic cardiomyopathy: Onset Date: 04/2023 Code(s): I25.5 - Ischemic cardiomyopathy Status: Acute Assessment and Plan: Echo: EF of 35 to 40%, hypokinesis to near akinesis of the anterior wall, grade 1 diastolic dysfunction. Started on carvedilol, furosemide iv + losartan per Cardiology. (6) Lower extremity edema: Code(s): R60.0 - Localized edema Status: Acute Assessment and Plan: Chronic for least 5 years per patient report. Due to a combination of obesity, sedentary lifestyle, and diastolic dysfunction. Continue diuresing with Lasix 40 mg daily IV Encouraged elevation Venous dopplers are negative (7) Hypertension: Code(s): I10 - Essential (primary) hypertension Status: Acute Assessment and Plan: Blood pressures are stable Continue amlodipine 5 mg daily, carvedilol 6.25 mg q.12 hours, and losartan 50 mg daily. pt also on iv lasix continue present care (8) Tobacco dependence: Code(s): F17.200 - Nicotine dependence, unspecified, uncomplicated Status: Acute Assessment and Plan: He smokes between 2 to 4 packs of cigarettes a day and has for 50 years! Smoking cessation is imperative and was discussed with the patient. He is motivated quit smoking and reports that his girlfriend is also going to try to quit. Plan Thank you for allowing us to participate in this patient's care. Please do not hesitate to contact us with any questions. Subjective Date/time seen: 04/29/23 13:53 Interval history: 62-year-old male smoker with suspected chronic obstructive pulmonary disease and hypertension whom the hospitalist service has been consulted for help managing his medical conditions. He was admitted to the hospital early yesterday morning through the emergency department with an acute anterior wall ST-elevation myocardial infarction after presenting with several hours of chest pain. He was taken to the hoisting laborer where he was found to have 100% proximal occlusion the LAD status post 3 drug-eluting stents. Revascularization was complicated by a small dissection flap resulting from initial predilatation of the lesion. He has been without chest pain and is doing well in that regard. He reports nearly constant coughing the last couple of days, much worse than his chronic, smoker's cough. Pt had emergent heart cath and 3 stents placed unfortunately pt appears sob with cough
--- NOTE | 2023-04-29 14:10 | PM.PNCARD ---
Progress Note: A&P Assessment and Plan (1) Acute ST elevation myocardial infarction: Onset Date: 04/27/23 Code(s): I21.3 - ST elevation (STEMI) myocardial infarction of unspecified site Status: Acute Assessment and Plan: Presents with chest pain and EKG evidence of acute anterior wall LA. angiogram revealed right coronary dominant circulation with 100% proximal occlusion of the large LAD. He is now s/p PCI to the LAD with KELLY x 3 from the midportion of the LAD back to the proximal segment of the artery to cover the lesion as well as ensure treating a dissection flap that was resulting from the initial pre dilatation of the target lesion. Echo shows overall mildly reduced LV systolic function with EF 35 - 40% with severe hypokinesis to near akinesis of the anterior wall in the midportion to the apex as well as of the septum. Grade I diastolic dysfunction. --DAPT with ASA in definitely and Brilinta for one year. Counseled patient that stopping either these agents early may result in stent thrombosis, LA, heart damage and . --Continue beta robert, ARB --Continue statin --Risk factor modification for CAD including immediate smoking cessation --Referral to cardiac rehab --Anticipate another 24 hours in the hospital --EKG in a.m. (new baseline) --ProBNP in a.m. --Check CXR due to SOB to see if any CHF. Findings: 1. New opacities in the left lower lung zone which could represent atelectasis or pneumonia. 2. Hyperlucency and architectural distortion at the upper lung zones suspicious for emphysema. Personally reviewed, no impressive for any CHF (2) CAD (coronary artery disease): Code(s): I25.10 - Atherosclerotic heart disease of [place] coronary artery without angina pectoris Status: Acute Assessment and Plan: As above. Continue DAPT, statin. (3) Lower extremity edema: Code(s): R60.0 - Localized edema Status: Acute Assessment and Plan: States this has been persistent for ~5 years. --IV furosemide and GENARO hose. (4) Hypertension: Code(s): I10 - Essential (primary) hypertension Status: Acute Assessment and Plan: --Increasee losartan to 50mg daily and coreg to 12.5mg b.i.d. --added amlodipine 5mg daily --improving (5) Smoking: Code(s): F17.200 - Nicotine dependence, unspecified, uncomplicated Status: Acute Assessment and Plan: Smoking cessation counseling. Patient states he intends to quit smoking. (6) COPD exacerbation: Code(s): J44.1 - Chronic obstructive pulmonary disease with (acute) exacerbation Status: Acute Assessment and Plan: Still requiring O2, not in shape for discharge today. CXR shows poss PNA; Dr. Shahid has added antibiotics. Plan Subjective Date/time seen: 04/29/23 14:10 Interval history: Cardiology follow up for CAD, STEMI Feels well this morning. Echo just performed. Denies any chest pain. Has some shortness of breath and edema but no different than his baseline. Date of service 04/28/2023: Feels okay this morning. Does not have any specific cardiovascular complaints. Date of service 04/29/2023: Patient states he feels ?the same. ? States he is always wheezy and his breathing is about normal for him. Later he admitted that he was more labored than usual. No chest pain. O2 sats are in the upper 80s when he is speaking, still requiring O2 nasal cannula, now up to 7 L. Telemetry: NSR. Review of Systems Review of Systems: No chest pain, dizziness. Complains of dry mouth, mild cough, labored breathing. No bleeding. Thinks edema has improved. Exam Const: General: cooperative and in distress (Patient appeared tachypneic using some accessory muscles of breathing); No confusion Orientation/consciousness: oriented to person, patient oriented x3 and No confusion HENMT: Mouth: Yes moist mucous membranes Eyes: General: appearance normal, both
[2023-04-29 16:16] LABS: MRSA (PCR) NOT DETECTED (NOT DETECTE)
[2023-04-29] MEDS: PIPERACILLN/TAZ 3.375GM/NS50ML 3.375 GM/50 ML BAG IVPB ×2 (17:14→21:17)
[2023-04-29] MEDS: VANCOMYCIN 1,250 MG/NS 250 ML 1,250 MG/250 ML BAG 166.67 MG IVPB ×2 (17:50→19:00)
[2023-04-30] VITALS (30 sets, daily range): BP systolic 123–148; BP diastolic 81–89; PULSE 72–97; RESP 17–75; TEMP 36.4–36.7; O2SAT 90–100
[2023-04-30] MEDS: PIPERACILLN/TAZ 3.375GM/NS50ML 3.375 GM/50 ML BAG IVPB ×4 (01:30→17:05)
[2023-04-30] MEDS: VANCOMYCIN 1,500 MG/NS 500 ML 1,500 MG/500 ML BAG 250 MG IVPB (02:52)
[2023-04-30] MEDS: IPRATROPIUM 0.5 MG/ALBUTEROL SULFATE 2.5 MG AMPUL.NEB 3 ML INHALATION ×6 (03:30→23:46)
[2023-04-30 04:32] LABS: Hematocrit 49.4 % (42.0-52.0); Mean Corpuscular HGB Conc 32.4 g/dl (32-36); Mean Corpuscular Hemoglobin 27.6 pg (26-34); Mean Corpuscular Volume 85.2 fl (80-100); Mean Platelet Volume 10.2 fl (7.4-10.4); Platelet Count Result 204 k/mm3 (150-375); Red Cell Distribution Width 14.8 % (11.5-14.5); White Blood Count 13.6 K/mm3 (4.5-10.0)
[2023-04-30 04:45] LABS: Alanine Aminotransferase 55 U/L (6-50); Albumin Level 3.9 g/dL (3.5-5.1); Alkaline Phosphatase 76 U/L (38-126); Anion Gap 2 mmol/L (8-16); Aspartate Amino Transferase 43 U/L (17-59); Blood Urea Nitrogen 30 mg/dL (9-20); Calcium 8.6 mg/dL (8.4-10.2); Carbon Dioxide 34 mmol/L (22-30); Chloride 102 mmol/L (98-107); Estimated CRCL calculation 82 ml/min; Estimated Glomerular Filt Rate > 60; Glucose 118 mg/dL (65-110); Magnesium 2.3 mg/dL (1.6-2.3); Potassium 3.2 mmol/L (3.4-5.0); Sodium 138 mmol/L (137-145)
[2023-04-30 04:51] LABS: NT Pro B Type Natriuretic Pept 1420 pg/mL (19.9-100)
[2023-04-30] MEDS: ALBUTEROL SULFATE (*SP) AEROSOL 1 PUFF 2 PUFF INHALATION ×2 (06:32→21:07)
--- NOTE | 2023-04-30 08:00 | ECG_ITS ---
Measurements Intervals Christine Rate: 84 P: 52 KS: 125 QRS: 82 QRSD: 97 T: 47 QT: 362 QTc: 428 Interpretive Statements SINUS RHYTHM POSSIBLE LEFT ATRIAL ENLARGEMENT CANNOT RULE OUT SEPTAL INFARCT, AGE INDETERMINATE ANTEROLATERAL ST ELEVATION MYOCARDIAL INFARCT- RECENT BASELINE ARTIFACT- I, II, III, AVR, AVL, AVF, V1, V3-V6 ABNORMAL ECG COMPARED TO ECG 04/27/2023 03:37:04 SIN[address] NOW PRESENT [address] ELEVATION IMPROVING Electronically Signed On 04-30-2023 8:15:50 CDT by Riaz Gonzalez D.O.
[2023-04-30] MEDS: ASPIRIN 81 MG CHEWABLE TABLET PO (08:40)
[2023-04-30] MEDS: ENOXAPARIN 40 MG/0.4 ML SYRINGE SUB-Q (08:40)
[2023-04-30] MEDS: carvediloL 12.5 MG TABLET PO ×2 (08:40→20:27)
[2023-04-30] MEDS: amLODIPine BESYLATE 5 MG TABLET PO (08:40)
[2023-04-30] MEDS: ROSUVASTATIN 10 MG TABLET 20 MG PO (08:40)
[2023-04-30] MEDS: POTASSIUM CHLORIDE 20 MEQ ER TABLET 40 MEQ PO ×2 (08:41→17:04)
[2023-04-30] MEDS: predniSONE 10 MG TABLET 30 MG PO (08:41)
[2023-04-30] MEDS: guaiFENesin 12 HR 600 MG TABCR 1200 MG PO ×2 (08:41→20:27)
[2023-04-30] MEDS: TICAGRELOR 90 MG TABLET PO ×2 (08:41→20:27)
[2023-04-30] MEDS: LOSARTAN POTASSIUM 50 MG TABLET PO (08:41)
[2023-04-30] MEDS: FUROSEMIDE INJ 40 MG/4 ML VIAL IV PUSH (08:41)
--- NOTE | 2023-04-30 09:10 | PM.PNCARD ---
Progress Note: A&P Assessment and Plan (1) Acute ST elevation myocardial infarction: Onset Date: 04/27/23 Code(s): I21.3 - ST elevation (STEMI) myocardial infarction of unspecified site Status: Acute Assessment and Plan: Presents with chest pain and EKG evidence of acute anterior wall [place]. angiogram revealed right coronary dominant circulation with 100% proximal occlusion of the large LAD. He is now s/p PCI to the LAD with KELLY x 3 from the midportion of the LAD back to the proximal segment of the artery to cover the lesion as well as ensure treating a dissection flap that was resulting from the initial pre dilatation of the target lesion. Echo shows overall mildly reduced LV systolic function with EF 35 - 40% with severe hypokinesis to near akinesis of the anterior wall in the midportion to the apex as well as of the septum. Grade I diastolic dysfunction. --DAPT with ASA in definitely and Brilinta for one year. --Continue beta robert, ARB --Continue statin --Risk factor modification for CAD including immediate smoking cessation --Referral to cardiac rehab (2) CAD (coronary artery disease): Code(s): I25.10 - Atherosclerotic heart disease of [place] coronary artery without angina pectoris Status: Acute Assessment and Plan: As above. Continue DAPT, statin. (3) Lower extremity edema: Code(s): R60.0 - Localized edema Status: Acute Assessment and Plan: States this has been persistent for ~5 years. Improving. --IV furosemide and GENARO hose. (4) Hypertension: Code(s): I10 - Essential (primary) hypertension Status: Acute Assessment and Plan: Presented with uncontrolled HTN --Increased losartan to 50mg daily and coreg to 12.5mg b.i.d. --added amlodipine 5mg daily --improving (5) Smoking: Code(s): F17.200 - Nicotine dependence, unspecified, uncomplicated Status: Acute Assessment and Plan: Smoking cessation counseling. Patient states he intends to quit smoking. (6) COPD exacerbation: Code(s): J44.1 - Chronic obstructive pulmonary disease with (acute) exacerbation Status: Acute Assessment and Plan: Still requiring O2, not in shape for discharge today. CXR shows poss PNA; abx have been started Plan Subjective Date/time seen: 04/30/23 09:10 Interval history: Cardiology follow up for CAD, STEMI Feels well this morning. Echo just performed. Denies any chest pain. Has some shortness of breath and edema but no different than his baseline. Date of service 04/28/2023: Feels okay this morning. Does not have any specific cardiovascular complaints. Date of service 04/29/2023: Patient states he feels ?the same. ? States he is always wheezy and his breathing is about normal for him. Later he admitted that he was more labored than usual. No chest pain. O2 sats are in the upper 80s when he is speaking, still requiring O2 nasal cannula, now up to 7 L. Telemetry: NSR. Date of service 04/30/2023: He feels well today. Still tachypneic and requiring supplemental O2, 5L. Doesn't feel short of breath. No chest pain. Review of Systems Review of Systems: No chest pain, dizziness. Complains of dry mouth, mild cough, labored breathing. No bleeding. Thinks edema has improved. ROS unobtainable: Yes unobtainable due to medical condition Neurologic: Denies confusion Psychiatric: Psychiatric: Denies confusion Exam Const: General: cooperative and in distress (Patient appeared tachypneic using some accessory muscles of breathing); No confusion Orientation/consciousness: oriented to person, patient oriented x3 and No confusion Other: obese white male lying comfortably in bed in the ICU HENMT: Mouth: Yes moist mucous membranes Eyes: General: appearance normal, both eyes and all related structures Sclera: sclerae normal Neck: Neck: supple and no JVD Other: bazan
[2023-04-30] MEDS: SALINE 0.65% NAS SOLN 44 ML BTL 1 SPRAY NASAL (12:53)
--- NOTE | 2023-04-30 15:47 | P.PNIM_ITS ---
Progress Note: A&P Assessment and Plan (1) Pneumonia: Code(s): J18.9 - Pneumonia, unspecified organism Status: Acute Assessment and Plan: Pt is [place] 5 [place] [id number] Cxr shows BL opacities continue iv zosyn D/w cardiology follow BC (2) COPD exacerbation: Code(s): J44.1 - Chronic obstructive pulmonary disease with (acute) exacerbation Status: Acute Assessment and Plan: Clinically the patient has evidence of COPD with exacerbation though has not been formally diagnosed. * Continue scheduled bronchodilators and prednisone taper. * Mucinex and Cornet ordered to help mobilize secretions. * pt will benefit from home oxygen assessment prior to Dc (3) Acute ST elevation myocardial infarction: Onset Date: 04/27/23 Code(s): I21.3 - ST elevation (STEMI) myocardial infarction of unspecified site Status: Acute Assessment and Plan: Patient presented to the ED with chest pain for several hours, found to have ST elevations in V2 through V6. * Status post drug-eluting stent x3 to the LAD complicated by dissection flap from dilatation. * Started on dual anti-platelet therapy (aspirin and ticagrelor), statin, and beta-robert. (4) Coronary artery disease: Onset Date: 04/2023 Code(s): I25.10 - Atherosclerotic heart disease of [place] coronary artery without angina pectoris Status: Acute Assessment and Plan: Plan is as detailed above. (5) Ischemic cardiomyopathy: Onset Date: 04/2023 Code(s): I25.5 - Ischemic cardiomyopathy Status: Acute Assessment and Plan: Echo: EF of 35 to 40%, hypokinesis to near akinesis of the anterior wall, grade 1 diastolic dysfunction. * Started on carvedilol +lasix + losartan per Cardiology. * (6) Lower extremity edema: Code(s): R60.0 - Localized edema Status: Acute Assessment and Plan: Chronic for least 5 years per patient report. Due to a combination of obesity, sedentary lifestyle, and diastolic dysfunction. * Continue diuresing with Lasix was transitioned to oral pills * Encouraged elevation * Venous dopplers are negative (7) Hypertension: Code(s): I10 - Essential (primary) hypertension Status: Acute Assessment and Plan: Blood pressures are stable * Continue amlodipine 5 mg daily, carvedilol 6.25 mg q.12 hours, and losartan 50 mg daily. and oral lasix * continue present care (8) Tobacco dependence: Code(s): F17.200 - Nicotine dependence, unspecified, uncomplicated Status: Acute Assessment and Plan: He smokes between 2 to 4 packs of cigarettes a day and has for 50 years! * Smoking cessation is discussed with pt Plan Subjective Date/time seen: 04/30/23 15:47 Interval history: 62-year-old male smoker with suspected chronic obstructive pulmonary disease and hypertension whom the hospitalist service has been consulted for help managing his medical conditions. He was admitted to the hospital early yesterday morning through the emergency department with an acute anterior wall ST-elevation myocardial infarction after presenting with several hours of chest pain. He was taken to the [facility] where he was found to have 100% proximal occlusion the LAD status post 3 drug-eluting stents. Revascularization was complicated by a small dissection flap resulting from initial predilata
--- NOTE | 2023-04-30 15:47 | PM.IMPN ---
Progress Note: A&P Assessment and Plan (1) Pneumonia: Code(s): J18.9 - Pneumonia, unspecified organism Status: Acute Assessment and Plan: Pt is on 5 [place] [address] Cxr shows BL opacities continue iv zosyn D/w cardiology follow BC (2) COPD exacerbation: Code(s): J44.1 - Chronic obstructive pulmonary disease with (acute) exacerbation Status: Acute Assessment and Plan: Clinically the patient has evidence of COPD with exacerbation though has not been formally diagnosed. Continue scheduled bronchodilators and prednisone taper. Mucinex and Cornet ordered to help mobilize secretions. pt will benefit from home oxygen assessment prior to Dc (3) Acute ST elevation myocardial infarction: Onset Date: 04/27/23 Code(s): I21.3 - ST elevation (STEMI) myocardial infarction of unspecified site Status: Acute Assessment and Plan: Patient presented to the ED with chest pain for several hours, found to have ST elevations in V2 through V6. Status post drug-eluting stent x3 to the LAD complicated by dissection flap from dilatation. Started on dual anti-platelet therapy (aspirin and ticagrelor), statin, and beta-robert. (4) Coronary artery disease: Onset Date: 04/2023 Code(s): I25.10 - Atherosclerotic heart disease of [place] coronary artery without angina pectoris Status: Acute Assessment and Plan: Plan is as detailed above. (5) Ischemic cardiomyopathy: Onset Date: 04/2023 Code(s): I25.5 - Ischemic cardiomyopathy Status: Acute Assessment and Plan: Echo: EF of 35 to 40%, hypokinesis to near akinesis of the anterior wall, grade 1 diastolic dysfunction. Started on carvedilol +lasix + losartan per Cardiology. (6) Lower extremity edema: Code(s): R60.0 - Localized edema Status: Acute Assessment and Plan: Chronic for least 5 years per patient report. Due to a combination of obesity, sedentary lifestyle, and diastolic dysfunction. Continue diuresing with Lasix was transitioned to oral pills Encouraged elevation Venous dopplers are negative (7) Hypertension: Code(s): I10 - Essential (primary) hypertension Status: Acute Assessment and Plan: Blood pressures are stable Continue amlodipine 5 mg daily, carvedilol 6.25 mg q.12 hours, and losartan 50 mg daily. and oral lasix continue present care (8) Tobacco dependence: Code(s): F17.200 - Nicotine dependence, unspecified, uncomplicated Status: Acute Assessment and Plan: He smokes between 2 to 4 packs of cigarettes a day and has for 50 years! Smoking cessation is discussed with pt Plan Subjective Date/time seen: 04/30/23 15:47 Interval history: 62-year-old male smoker with suspected chronic obstructive pulmonary disease and hypertension whom the hospitalist service has been consulted for help managing his medical conditions. He was admitted to the hospital early yesterday morning through the emergency department with an acute anterior wall ST-elevation myocardial infarction after presenting with several hours of chest pain. He was taken to the lab technician where he was found to have 100% proximal occlusion the LAD status post 3 drug-eluting stents. Revascularization was complicated by a small dissection flap resulting from initial predilatation of the lesion. He has been without chest pain and is doing well in that regard. He reports nearly constant coughing the last couple of days, much worse than his chronic, smoker's cough. 04/28 Pt had emergent heart cath and 3 stents placed unfortunately pt appears sob with cough today Cxr ordered showing BL pneumonia I will order BC and order IV abx Continue breathing treatments 04/29 Continue present care with iv zosyn [facility] Bc negative to date Pt still coughing with mild sob on 5 liters of oxygen Pt dangelo
[2023-05-01] VITALS (23 sets, daily range): BP systolic 114–163; BP diastolic 62–104; PULSE 74–97; RESP 16–26; TEMP 36.1–36.6; O2SAT 90–97
[2023-05-01] MEDS: PIPERACILLN/TAZ 3.375GM/NS50ML 3.375 GM/50 ML BAG IVPB ×4 (00:32→17:33)
[2023-05-01] MEDS: IPRATROPIUM 0.5 MG/ALBUTEROL SULFATE 2.5 MG AMPUL.NEB 3 ML INHALATION ×4 (03:40→21:40)
--- NOTE | 2023-05-01 03:43 | PCRCNOTE ---
Pt unable to do Apnea Link at this time. Pt on 5l/m HFNC. Pt is very short of breath. Pt gets treatments Q4hr and pt calls for Inhaler in between scheduled treatments. Plus, pt didn't sleep all night long.
[2023-05-01 04:38] LABS: Hematocrit 50.1 % (42.0-52.0); Hemoglobin 16.1 g/dL (14.0-18.0); Mean Corpuscular HGB Conc 32.1 g/dl (32-36); Mean Corpuscular Hemoglobin 27.5 pg (26-34); Mean Corpuscular Volume 85.5 fl (80-100); Mean Platelet Volume 10.7 fl (7.4-10.4); Platelet Count Result 223 k/mm3 (150-375); Red Blood Count 5.86 M/mm3 (4.6-6.20); Red Cell Distribution Width 14.8 % (11.5-14.5); White Blood Count 12.4 K/mm3 (4.5-10.0)
[2023-05-01 04:54] LABS: Alanine Aminotransferase 60 U/L (6-50); Albumin Level 4.2 g/dL (3.5-5.1); Alkaline Phosphatase 78 U/L (38-126); Anion Gap 2 mmol/L (8-16); Aspartate Amino Transferase 37 U/L (17-59); Bilirubin,Total 0.8 mg/dL (0.2-1.3); Blood Urea Nitrogen 30 mg/dL (9-20); Calcium 9.1 mg/dL (8.4-10.2); Carbon Dioxide 33 mmol/L (22-30); Chloride 105 mmol/L (98-107); Estimated CRCL calculation 82 ml/min; Estimated Glomerular Filt Rate > 60; Glucose 124 mg/dL (65-110); Magnesium 2.5 mg/dL (1.6-2.3); Potassium 3.5 mmol/L (3.4-5.0); Sodium 140 mmol/L (137-145)
--- NOTE | 2023-05-01 07:36 | PC.NURSE ---
This patient, Cyrus Harris, was transferred to [facility] on 05/01/23 at 0700. Personal belongings sent with patient. Report given to KEENAN Dangelo. Appropriate documentation sent with patient.
--- NOTE | 2023-05-01 08:39 | PM.PNCARD ---
Progress Note: A&P Assessment and Plan (1) Acute ST elevation myocardial infarction: Onset Date: 04/27/23 Code(s): I21.3 - ST elevation (STEMI) myocardial infarction of unspecified site Status: Acute Assessment and Plan: Presents with chest pain and EKG evidence of acute anterior wall [place]. angiogram revealed right coronary dominant circulation with 100% proximal occlusion of the large LAD. He is now s/p PCI to the LAD with KELLY x 3 from the midportion of the LAD back to the proximal segment of the artery to cover the lesion as well as ensure treating a dissection flap that was resulting from the initial pre dilatation of the target lesion. Echo shows overall mildly reduced LV systolic function with EF 35 - 40% with severe hypokinesis to near akinesis of the anterior wall in the midportion to the apex as well as of the septum. Grade I diastolic dysfunction. --DAPT with ASA in definitely and Brilinta for one year. --Continue beta robert, ARB --Continue statin --Risk factor modification for CAD including immediate smoking cessation --Referral to cardiac rehab --Anticipate discharge tomorrow, 05/01. (2) CAD (coronary artery disease): Code(s): I25.10 - Atherosclerotic heart disease of [place] coronary artery without angina pectoris Status: Acute Assessment and Plan: As above. Continue DAPT, statin. (3) Lower extremity edema: Code(s): R60.0 - Localized edema Status: Acute Assessment and Plan: States this has been persistent for ~5 years. Improving. --Will shift to p.o. furosemide --GENARO morris (4) Hypertension: Code(s): I10 - Essential (primary) hypertension Status: Acute Assessment and Plan: Presented with uncontrolled HTN --Remains elevated despite adjusting antihypertensive regimen --Continue losartan to 50mg daily --Increase coreg to 25mg b.i.d. (may want to consider adding a different agent and reducing BB in light of his (probably) significant CODP) --added amlodipine 5mg daily earlier this week, will increase to 10mg daily (5) Smoking: Code(s): F17.200 - Nicotine dependence, unspecified, uncomplicated Status: Acute Assessment and Plan: Smoking cessation counseling. Patient states he intends to quit smoking. (6) COPD exacerbation: Code(s): J44.1 - Chronic obstructive pulmonary disease with (acute) exacerbation Status: Acute Assessment and Plan: Pulmonology consulted for additional assistance with management, discussed with Dr. Lozano - appreciate recommendations Pulmonology not in house this weekend - plan for overnight oximetry to evaluate for nocturnal O2 needs. Dr. Murphy is senior production planner this weekend, please call her with questions regarding results/criteria for home O2/ordering home O2 that cannot be addressed by the hospitalist Plan Subjective Date/time seen: 05/01/23 08:39 Interval history: Cardiology follow up for CAD, STEMI Feels well this morning. Echo just performed. Denies any chest pain. Has some shortness of breath and edema but no different than his baseline. Date of service 04/28/2023: Feels okay this morning. Does not have any specific cardiovascular complaints. Date of service 04/29/2023: Patient states he feels ?the same. ? States he is always wheezy and his breathing is about normal for him. Later he admitted that he was more labored than usual. No chest pain. O2 sats are in the upper 80s when he is speaking, still requiring O2 nasal cannula, now up to 7 L. Telemetry: NSR. Date of service 05/01/2023: Doing better today, Off O2. No cardiovascular complaints. Eager to go home. Review of Systems Review of Systems: ROS unobtainable: Yes unobtainable due to medical condition Neurologic: Denies confusion Psychiatric: Psychiatric: Denies confusion Exam Const: General: cooperative and in distress (Patient appeared tachypneic using meka
[2023-05-01] MEDS: predniSONE 10 MG TABLET 30 MG PO (09:24)
[2023-05-01] MEDS: ENOXAPARIN 40 MG/0.4 ML SYRINGE SUB-Q (09:24)
[2023-05-01] MEDS: amLODIPine BESYLATE 5 MG TABLET PO (09:24)
[2023-05-01] MEDS: LOSARTAN POTASSIUM 50 MG TABLET PO (09:25)
[2023-05-01] MEDS: POTASSIUM CHLORIDE 20 MEQ ER TABLET 40 MEQ PO ×2 (09:25→16:54)
[2023-05-01] MEDS: carvediloL 12.5 MG TABLET PO (09:25)
[2023-05-01] MEDS: guaiFENesin 12 HR 600 MG TABCR 1200 MG PO ×2 (09:25→20:40)
[2023-05-01] MEDS: TICAGRELOR 90 MG TABLET PO ×2 (09:25→20:40)
[2023-05-01] MEDS: ROSUVASTATIN 10 MG TABLET 20 MG PO (09:25)
[2023-05-01] MEDS: ASPIRIN 81 MG CHEWABLE TABLET PO (09:25)
[2023-05-01] MEDS: FUROSEMIDE INJ 40 MG/4 ML VIAL IV PUSH (09:26)
--- NOTE | 2023-05-01 09:26 | PM.IMPN ---
Progress Note: A&P Assessment and Plan (1) Pneumonia: Code(s): J18.9 - Pneumonia, unspecified organism Status: Acute Assessment and Plan: Pt is on 5 [place] [address] Cxr shows BL opacities continue iv zosyn D/w cardiology follow BC (2) COPD exacerbation: Code(s): J44.1 - Chronic obstructive pulmonary disease with (acute) exacerbation Status: Acute Assessment and Plan: Clinically the patient has evidence of COPD with exacerbation though has not been formally diagnosed. Continue scheduled bronchodilators and prednisone taper. Mucinex and Cornet ordered to help mobilize secretions. pt will benefit from home oxygen assessment prior to Dc (3) Acute ST elevation myocardial infarction: Onset Date: 04/27/23 Code(s): I21.3 - ST elevation (STEMI) myocardial infarction of unspecified site Status: Acute Assessment and Plan: Patient presented to the ED with chest pain for several hours, found to have ST elevations in V2 through V6. Status post drug-eluting stent x3 to the LAD complicated by dissection flap from dilatation. Started on dual anti-platelet therapy (aspirin and ticagrelor), statin, and beta-robert. (4) Coronary artery disease: Onset Date: 04/2023 Code(s): I25.10 - Atherosclerotic heart disease of [place] coronary artery without angina pectoris Status: Acute Assessment and Plan: Plan is as detailed above. (5) Ischemic cardiomyopathy: Onset Date: 04/2023 Code(s): I25.5 - Ischemic cardiomyopathy Status: Acute Assessment and Plan: Echo: EF of 35 to 40%, hypokinesis to near akinesis of the anterior wall, grade 1 diastolic dysfunction. Started on carvedilol +lasix + losartan per Cardiology. (6) Lower extremity edema: Code(s): R60.0 - Localized edema Status: Acute Assessment and Plan: Chronic for least 5 years per patient report. Due to a combination of obesity, sedentary lifestyle, and diastolic dysfunction. Continue diuresing with Lasix was transitioned to oral pills Encouraged elevation Venous dopplers are negative (7) Hypertension: Code(s): I10 - Essential (primary) hypertension Status: Acute Assessment and Plan: Blood pressures are stable Continue amlodipine 5 mg daily, carvedilol 6.25 mg q.12 hours, and losartan 50 mg daily. and oral lasix continue present care (8) Tobacco dependence: Code(s): F17.200 - Nicotine dependence, unspecified, uncomplicated Status: Acute Assessment and Plan: He smokes between 2 to 4 packs of cigarettes a day and has for 50 years! Smoking cessation is discussed with pt Plan 62-year-old male smoker with suspected chronic obstructive pulmonary disease and hypertension whom the hospitalist service has been consulted for help managing his medical conditions. He was admitted to the hospital early 04/29/2023 Through the emergency department with an acute anterior wall ST-elevation myocardial infarction after presenting with several hours of chest pain. Troponin elevated from 0. 416 to 49 and peaked to more than 80. He was taken to the rn cardiac cath where he was found to have 100% proximal occlusion the LAD status post 3 drug-eluting stents. Revascularization was complicated by a small dissection flap resulting from initial predilatation of the lesion. He has been without chest pain and is doing well in that regard. He reports nearly constant coughing the last couple of days, much worse than his chronic, smoker's cough. Chest x-ray showed bilateral pneumonia Echo with the mildly reduced LV systolic function at 35-40% with severe hypokinesis to near akinesis of the anterior wall in the midportion to the apex as well as the septum grade 1 diastolic dysfunction. DAPT with aspirin indefinitely and Brilinta for 1 year beta-robert ARB statin. Chest x-ray showed bilateral pneumo
[2023-05-01 10:38] LABS: D Dimer 0.73 ug/mL (<0.48)
--- NOTE | 2023-05-01 10:57 | PM.CNPUL ---
Assessment and Plan Assessment and plan (1) COPD exacerbation: Code(s): J44.1 - Chronic obstructive pulmonary disease with (acute) exacerbation Status: Acute Assessment and Plan: Patient with a history of 120 pack year tobacco use, smoking 3 packs a day up until admission on 04/27/2023. The patient has intermittent wheezes for 40 years, chronic cough for 30 years, and dyspnea on exertion. In 2008 he was placed on Symbicort and albuterol. At some point he had a breathing test and a PCPs office visit but to his knowledge has never had formal PFTs. He presented on 04/26 with no hypoxia, hemoglobin 17.7, serum bicarbonate 27, white blood cell count 11.9 with 3% eosinophils equals 357 per micro L and with an acute ST-elevation TX requiring stent x3. He was also given Lasix during the hospitalization and he developed wheezing was started on prednisone 30 mg a day and bronchodilators on 04/27/2023 for a COPD exacerbation. A chest x-ray on 04/29/2023 demonstrated a new left lower lobe opacification and he was started on vancomycin and Zosyn for presumed healthcare associated pneumonia. His oxygen requirements peaked on 04/28 requiring 7 L NC. Clinically the patient does have COPD And although he had no change in his respiratory issues prior to his TX at home afterwards he is developed wheezing, shortness of breath with no change in his chronic phlegm production. He is being treated for COPD exacerbation and pneumonia. 04/30 Overall patient is improved since admission. He has no change in his chronic cough and phlegm production which is white. And generally feels as if he is breathing back at his baseline. His white blood cell count is 12.4, his creatinine is 1.10, he is afebrile. Cumulative diuresis since admission is 3.1 L. His weight is 134.2 kg. When I entered the room he was on 5 L with saturations 99%. I decreased him to 2 L for 12 minutes and his saturations were 96%. I decreased him to room air and after 11 minutes his saturations were 93%. Overall the patient feels he is breathing well enough to be discharged today. Plan: I have ordered a D-dimer which is positive at 0.73 and I have ordered a CT angiogram of the chest to exclude pulmonary embolism. CT scan will also be able to evaluate for bullous emphysema, pneumonia, pleural effusions or evidence of fluid overload/congestion. I will order COVID, influenza and RSV test. I will order a rest room air ABG to assess for hypercarbia. I will order an alpha 1 anti trypsin genotype and level 05/02/2023. Patient is currently on prednisone 30 mg p.o. q.day (day 5), I will discontinue his prednisone. DuoNebs q.4 hours and the patient states that these dry him out and make him feel worse, I will discontinue his standing DuoNebs and place him on trelegy 100-62.5-25 at 1 puff q.day. Regarding his oxygenation at rest and with activity he will need a home O2 assessment prior to discharge. Regarding oxygenation at night, I will order an overnight oximetry on room air tonight. If his saturations are less than or equal to 88% for greater than 5 minutes and less than 30 minutes he will need supplemental oxygen at 2 L NC when he sleeps. If his saturations are less than or equal to 88% for greater than 30 minutes he should be discharged on 4 L nasal cannula at night when he sleeps. If he is in the hospital the night of 05/01 and requires supplemental oxygen at night, a repeat overnight oximetry should be performed on the supplemental oxygen with a goal of saturation less than or equal to 88% for 5 minutes or less. Smoking cessation counseling was provided. The patient tells me that he has never quit previously but with this life changing illness he will quit at this point. The was in the room and she is also smoker and she says she will quit as well. If he is discharged through the weekend he should be discharged on these pulmonary medications: Ellen 875/125 1 tab p.o.
--- NOTE | 2023-05-01 11:30 | PC.NURSE ---
Oxygen saturations dropped to 84% while on room air. Placed on 3L/NC. Oxygen saturation is 94% at this time. Denies any increased shortness of breath at this time. No acute distress noted by this RN at this time.
[2023-05-01 11:36] LABS: Influenza A QL RT-PCR Negative (Negative); Influenza B QL RT-PCR Negative (Negative); RSV RNA, RT-PCR Negative (Negative); SARS-CoV-2 RNA PCR Negative (Negative)
[2023-05-01 12:08] LABS: Alveolar/Arterial O2 Gradient 47.8 mmHg; Base Excess ABG 4.4 mEq/l (+/-2.0); Fractional Inspired Oxygen 21 %; HCO3 ABG 27.5 mEq/l (22.0-26.0); Oxygen Content ABG 21.1 %vol (16.0-22.0); Oxygen Saturation ABG 92.6 % (95.0-100.0); Oxyhemoglobin 90.7 % THb (90.0-100.0); PCO2 ABG 36.2 mmHg (35.0-45.0); PO2 ABG 58.6 mmHg (80.0-100.0); PO2 FiO2 Ratio Arterial Blood 2.79 %; Total Hemoglobin 16.6 g/dL (12.0-18.0); pH ABG 7.498 (7.350-7.450)
[2023-05-01 12:10] LABS: Device ROOM AIR; Modified Allen's Test Pass; Site Drawn LEFT RADIAL
[2023-05-01] MEDS: carvediloL 25 MG TABLET PO (20:41)
[2023-05-02] VITALS (21 sets, daily range): BP systolic 112–152; BP diastolic 74–98; PULSE 59–91; RESP 12–24; TEMP 35.7–36.6; O2SAT 87–99
[2023-05-02] MEDS: PIPERACILLN/TAZ 3.375GM/NS50ML 3.375 GM/50 ML BAG IVPB ×5 (00:16→23:11)
--- NOTE | 2023-05-02 00:51 | PCRCNOTE ---
Apnea link monitoring stopped due to pt having medical issues. Rn aware, consulting systems engineer had to be called.
[2023-05-02 04:39] LABS: Hematocrit 50.5 % (42.0-52.0); Hemoglobin 15.9 g/dL (14.0-18.0); Mean Corpuscular HGB Conc 31.5 g/dl (32-36); Mean Corpuscular Hemoglobin 27.4 pg (26-34); Mean Corpuscular Volume 86.9 fl (80-100); Mean Platelet Volume 10.6 fl (7.4-10.4); Platelet Count Result 236 k/mm3 (150-375); Red Blood Count 5.81 M/mm3 (4.6-6.20); Red Cell Distribution Width 14.8 % (11.5-14.5); White Blood Count 13.3 K/mm3 (4.5-10.0)
[2023-05-02 04:49] LABS: Alanine Aminotransferase 84 U/L (6-50); Albumin Level 4.2 g/dL (3.5-5.1); Alkaline Phosphatase 78 U/L (38-126); Anion Gap 3 mmol/L (8-16); Aspartate Amino Transferase 42 U/L (17-59); Bilirubin,Total 0.9 mg/dL (0.2-1.3); Blood Urea Nitrogen 28 mg/dL (9-20); Calcium 8.8 mg/dL (8.4-10.2); Carbon Dioxide 30 mmol/L (22-30); Chloride 108 mmol/L (98-107); Estimated CRCL calculation 106 ml/min; Estimated Glomerular Filt Rate > 60; Glucose 101 mg/dL (65-110); Magnesium 2.7 mg/dL (1.6-2.3); Potassium 4.1 mmol/L (3.4-5.0); Sodium 141 mmol/L (137-145)
[2023-05-02] MEDS: FLUTICASONE/UMECLIDIN/VILANTER 100-62.5-25 MCG ELLIPTA 1 PUFF INHALATION (08:08)
[2023-05-02] MEDS: ROSUVASTATIN 10 MG TABLET 20 MG PO (10:36)
[2023-05-02] MEDS: POTASSIUM CHLORIDE 20 MEQ ER TABLET 40 MEQ PO (10:36)
[2023-05-02] MEDS: FUROSEMIDE 40 MG TABLET PO (10:36)
[2023-05-02] MEDS: guaiFENesin 12 HR 600 MG TABCR 1200 MG PO ×2 (10:36→20:33)
[2023-05-02] MEDS: TICAGRELOR 90 MG TABLET PO ×2 (10:36→20:33)
[2023-05-02] MEDS: amLODIPine BESYLATE 5 MG TABLET 10 MG PO (10:36)
[2023-05-02] MEDS: LOSARTAN POTASSIUM 50 MG TABLET PO (10:36)
[2023-05-02] MEDS: ASPIRIN 81 MG CHEWABLE TABLET PO (10:37)
[2023-05-02] MEDS: ENOXAPARIN 40 MG/0.4 ML SYRINGE SUB-Q (12:10)
--- NOTE | 2023-05-02 12:13 | PM.PNCARD ---
Progress Note: A&P Assessment and Plan (1) Acute ST elevation myocardial infarction: Onset Date: 04/27/23 Code(s): I21.3 - ST elevation (STEMI) myocardial infarction of unspecified site Status: Acute Assessment and Plan: Presents with chest pain and EKG evidence of acute anterior wall AR. angiogram revealed right coronary dominant circulation with 100% proximal occlusion of the large LAD. He is now s/p PCI to the LAD with KELLY x 3 from the midportion of the LAD back to the proximal segment of the artery to cover the lesion as well as ensure treating a dissection flap that was resulting from the initial pre dilatation of the target lesion. Echo shows overall mildly reduced LV systolic function with EF 35 - 40% with severe hypokinesis to near akinesis of the anterior wall in the midportion to the apex as well as of the septum. Grade I diastolic dysfunction. --DAPT with ASA in definitely and Brilinta for one year. --Continue beta robert, ARB --Continue statin --Risk factor modification for CAD including immediate smoking cessation --Referral to cardiac rehab --possibly discharge tomorrow (2) CAD (coronary artery disease): Code(s): I25.10 - Atherosclerotic heart disease of [place] coronary artery without angina pectoris Status: Acute Assessment and Plan: As above. Continue DAPT, statin. (3) Lower extremity edema: Code(s): R60.0 - Localized edema Status: Acute Assessment and Plan: States this has been persistent for ~5 years. Improving. --Will shift to p.o. furosemide --GENARO morris (4) Hypertension: Code(s): I10 - Essential (primary) hypertension Status: Acute Assessment and Plan: Presented with uncontrolled HTN --Remains elevated despite adjusting antihypertensive regimen --Continue losartan to 50mg daily ----added amlodipine 5mg daily earlier this week but given his reduced EF, he would likely benefit from spironolactone as both CHF and BP and cardiomyopathy medication. Will add spironolactone 25 mg p.o. daily. Will discontinue his potassium supplementation. (5) Smoking: Code(s): F17.200 - Nicotine dependence, unspecified, uncomplicated Status: Acute Assessment and Plan: Smoking cessation counseling. Patient states he intends to quit smoking. (6) COPD exacerbation: Code(s): J44.1 - Chronic obstructive pulmonary disease with (acute) exacerbation Status: Acute Assessment and Plan: Pulmonology consulted for additional assistance with management, discussed with Dr. Lozano - appreciate recommendations Pulmonology not in house this weekend - plan for overnight oximetry to evaluate for nocturnal O2 needs. Dr. Murphy is rehabilitation teacher this weekend, please call her with questions regarding results/criteria for home O2/ordering home O2 that cannot be addressed by the hospitalist (7) Sinus pause: Code(s): I45.5 - Other specified heart block Status: Acute Assessment and Plan: Several sinus pauses up to 6 seconds last night. May be related to sleep apnea plus/minus beta-robert plus/minus infarction. Will reduce carvedilol significantly. He needs some beta-robert because of his cardiomyopathy and CAD. He is agreeable to stay in the hospital for further observation given his pauses overnight. Will lower his carvedilol down to 6.25 mg p.o. b.i.d. Subjective Date/time seen: 05/02/23 12:13 Interval history: Cardiology follow up for CAD, STEMI Feels well this morning. Echo just performed. Denies any chest pain. Has some shortness of breath and edema but no different than his baseline. Date of service 04/28/2023: Feels okay this morning. Does not have any specific cardiovascular complaints. Date of service 04/29/2023: Patient states he feels ?the same. ? States he is always wheezy and his breathing is about normal for him. Later he admitted that he was more labored than usual
[2023-05-02] MEDS: SPIRONOLACTONE 25 MG TABLET PO (12:49)
[2023-05-02] MEDS: carvediloL 6.25 MG TABLET PO ×2 (12:49→20:33)
--- NOTE | 2023-05-02 14:15 | PM.IMPN ---
Progress Note: A&P Assessment and Plan (1) Pneumonia: Code(s): J18.9 - Pneumonia, unspecified organism Status: Acute (2) COPD exacerbation: Code(s): J44.1 - Chronic obstructive pulmonary disease with (acute) exacerbation Status: Acute (3) Acute ST elevation myocardial infarction: Onset Date: 04/27/23 Code(s): I21.3 - ST elevation (STEMI) myocardial infarction of unspecified site Status: Acute (4) Coronary artery disease: Onset Date: 04/2023 Code(s): I25.10 - Atherosclerotic heart disease of [place] coronary artery without angina pectoris Status: Acute (5) Ischemic cardiomyopathy: Onset Date: 04/2023 Code(s): I25.5 - Ischemic cardiomyopathy Status: Acute (6) Lower extremity edema: Code(s): R60.0 - Localized edema Status: Acute (7) Hypertension: Code(s): I10 - Essential (primary) hypertension Status: Acute (8) Tobacco dependence: Code(s): F17.200 - Nicotine dependence, unspecified, uncomplicated Status: Acute Plan 62-year-old male smoker with suspected chronic obstructive pulmonary disease and hypertension whom the hospitalist service has been consulted for help managing his medical conditions. He was admitted to the hospital early 04/29/2023 Through the emergency department with an acute anterior wall ST-elevation myocardial infarction after presenting with several hours of chest pain. Troponin elevated from 0. 416 to 49 and peaked to more than 80. He was taken to the aquatic life laborer where he was found to have 100% proximal occlusion the LAD status post 3 drug-eluting stents. Revascularization was complicated by a small dissection flap resulting from initial predilatation of the lesion. He has been without chest pain and is doing well in that regard. He reports nearly constant coughing the last couple of days, much worse than his chronic, smoker's cough. Chest x-ray showed bilateral pneumonia Echo with the mildly reduced LV systolic function at 35-40% with severe hypokinesis to near akinesis of the anterior wall in the midportion to the apex as well as the septum grade 1 diastolic dysfunction. DAPT with aspirin indefinitely and Brilinta for 1 year beta-robert ARB statin. Chest x-ray showed bilateral pneumonia and started on antibiotics Mildly hypoxic needing oxygen supplementation via nasal cannula continue to wean oxygen as tolerated Sinus pauses likely beta-robert related. Dose adjusted per Cardiology Treated as COPD exacerbation currently on oral prednisone and IV Lasix daily IV Zosyn. Oxygen has been tapered down consulted CTA with no PE however was noted to have left lower lobe pneumonia. Also has emphysema. BNP 1420, venous duplex negative for DVT in lower extremities DVT prophylaxis Lovenox Subjective Date/time seen: 05/02/23 14:15 Interval history: 62-year-old male smoker with suspected chronic obstructive pulmonary disease and hypertension whom the hospitalist service has been consulted for help managing his medical conditions. He was admitted to the hospital early 04/29/2023 Through the emergency department with an acute anterior wall ST-elevation myocardial infarction after presenting with several hours of chest pain. Troponin elevated from 0. 416 to 49 and peaked to more than 80. He was taken to the aquatic life laborer where he was found to have 100% proximal occlusion the LAD status post 3 drug-eluting stents. Revascularization was complicated by a small dissection flap resulting from initial predilatation of the lesion. He has been without chest pain and is doing well in that regard. He reports nearly constant coughing the last couple of days, much worse than his chronic, smoker's cough. Chest x-ray showed bilateral pneumonia Echo with the mildly reduced LV systolic function at 35-40% with severe hypokinesis to near akinesis of the anterior wall in the midportion to the apex as well as the septum grade 1 diastolic dysfunct
[2023-05-02] MEDS: ALBUTEROL SULFATE (*SP) AEROSOL 1 PUFF 2 PUFF INHALATION ×2 (18:10→22:01)
--- NOTE | 2023-05-02 23:14 | PC.NURSE ---
Pt declined offer of calling significant other to alert her to planned move to icu for closer monitoring of cardiac status.
[2023-05-03] VITALS (29 sets, daily range): BP systolic 124–156; BP diastolic 73–114; PULSE 66–95; RESP 12–24; TEMP 36.4–36.9; O2SAT 87–97
--- NOTE | 2023-05-03 00:19 | PCRCNOTE ---
Apnealink not applied at this time. Spoke with RN about patient and patient status. Patient will be moving to ICU.
--- NOTE | 2023-05-03 00:28 | PC.NURSE ---
Patient's SO Cha called to make aware of move to ICU. Update given.
--- NOTE | 2023-05-03 00:31 | PC.NURSE ---
This patient, Cyrus Harris, was transferred to ICU 2 on 05/03/23 at 0015 for closer cardiac monitoring. Personal belongings sent with patient. Report given to Heidy. Appropriate documentation sent with patient.
[2023-05-03] MEDS: ALBUTEROL SULFATE (*SP) AEROSOL 1 PUFF 2 PUFF INHALATION (00:48)
--- NOTE | 2023-05-03 00:56 | PC.NURSE ---
This patient, Cyrus Harris, was received from Anny Lujan RN on 05/03/23 at 0020. Patient/family oriented to unit policies and routines
[2023-05-03] MEDS: IPRATROPIUM 0.5 MG/ALBUTEROL SULFATE 2.5 MG AMPUL.NEB 3 ML INHALATION ×4 (03:13→19:49)
--- NOTE | 2023-05-03 03:34 | PCRCNOTE ---
the oximetry study was stopped due to the patient complaining of chest tightness and wheezing; a neb treatment was given
--- NOTE | 2023-05-03 03:50 | ECG_ITS ---
Measurements Intervals [place] Rate: 91 P: 64 TX: 146 QRS: 84 QRSD: 94 T: 88 QT: 353 QTc: 436 Interpretive Statements SINUS RHYTHM POSSIBLE LEFT ATRIAL ENLARGEMENT LOW QRS VOLTAGE IN PRECORDIAL LEADS ANTEROSEPTAL INFARCT, RECENT ABNORMAL ECG COMPARED TO ECG 04/30/2023 07:42:04 NO SIGNIFICANT CHANGES Electronically Signed On 05-03-2023 7:56:27 CDT by Riaz Gonzalez D.O.
[2023-05-03] MEDS: ALPRAZolam (*CRX) 0.25 MG TABLET PO (03:53)
[2023-05-03 03:54] LABS: Basophils Absolute Auto 0.1 K/mm3 (0.0-0.1); Basophils Percent Auto 0.5 % (0.2-1.2); Eosinophils Absolute Auto 0.4 K/mm3 (0-0.3); Hematocrit 49.9 % (42.0-52.0); Hemoglobin 16.1 g/dL (14.0-18.0); Immature Granulocyte Absolute 0.04 K/mm3 (0.00-0.031); Immature Granulocyte Percent A 0.3 % (0-0.5); Lymphocytes Absolute Auto 1.25 K/mm3 (0.9-3.2); Lymphocytes Percent Auto 10.5 % (18.3-44.2); Mean Corpuscular HGB Conc 32.3 g/dl (32-36); Mean Corpuscular Hemoglobin 27.7 pg (26-34); Mean Corpuscular Volume 85.7 fl (80-100); Mean Platelet Volume 10.3 fl (7.4-10.4); Monocytes Absolute Auto 0.7 K/mm3 (0.1-0.6); Monocytes Percent Auto 5.5 % (2.6-8.5); Neutrophils Absolute Auto 9.6 K/mm3 (1.3-6.7); Neutrophils Percent Auto 80.2 % (45.5-73.1); Platelet Count Result 242 k/mm3 (150-375); Red Blood Count 5.82 M/mm3 (4.6-6.20); Red Cell Distribution Width 14.7 % (11.5-14.5); White Blood Count 11.9 K/mm3 (4.5-10.0)
[2023-05-03 04:09] LABS: Alanine Aminotransferase 76 U/L (6-50); Albumin Level 4.1 g/dL (3.5-5.1); Alkaline Phosphatase 78 U/L (38-126); Anion Gap 4 mmol/L (8-16); Aspartate Amino Transferase 34 U/L (17-59); Blood Urea Nitrogen 27 mg/dL (9-20); Carbon Dioxide 30 mmol/L (22-30); Chloride 106 mmol/L (98-107); Estimated CRCL calculation 106 ml/min; Estimated Glomerular Filt Rate > 60; Glucose 123 mg/dL (65-110); Magnesium 2.4 mg/dL (1.6-2.3); Potassium 4.1 mmol/L (3.4-5.0); Sodium 140 mmol/L (137-145)
[2023-05-03] MEDS: hydrALAZINE HCL 20 MG/ML VIAL 10 MG IV PUSH (04:48)
[2023-05-03] MEDS: PIPERACILLN/TAZ 3.375GM/NS50ML 3.375 GM/50 ML BAG IVPB ×3 (05:02→18:17)
[2023-05-03] MEDS: FLUTICASONE/UMECLIDIN/VILANTER 100-62.5-25 MCG ELLIPTA 1 PUFF INHALATION (07:35)
[2023-05-03] MEDS: guaiFENesin 12 HR 600 MG TABCR 1200 MG PO ×2 (08:42→20:01)
[2023-05-03] MEDS: FUROSEMIDE 40 MG TABLET PO (08:42)
[2023-05-03] MEDS: ASPIRIN 81 MG CHEWABLE TABLET PO (08:42)
[2023-05-03] MEDS: ENOXAPARIN 40 MG/0.4 ML SYRINGE SUB-Q (08:42)
[2023-05-03] MEDS: LOSARTAN POTASSIUM 50 MG TABLET PO (08:42)
[2023-05-03] MEDS: TICAGRELOR 90 MG TABLET PO ×2 (08:42→20:01)
[2023-05-03] MEDS: ROSUVASTATIN 10 MG TABLET 20 MG PO (08:42)
[2023-05-03] MEDS: SPIRONOLACTONE 25 MG TABLET PO (08:43)
[2023-05-03] MEDS: amLODIPine BESYLATE 5 MG TABLET PO (08:43)
--- NOTE | 2023-05-03 09:26 | WPDINTPN ---
Progress Note: A&P Assessment and Plan (1) Sinus pause: Code(s): I45.5 - Other specified heart block Status: Acute Assessment and Plan: Patient has had sinus pauses started on 05/02/2023 with a 6 seconds pause. On 05/03/2023 patient had a 8 and 11 seconds pause, most of them have occurred at night when he is asleep, likely related to sleep apnea and or beta-robert, could be related to her recent myocardial infarction. One of the pauses occurred when he was on a bedside commode, which could be related to vasovagal issues, beta-robert, recent myocardial infarction. -beta-blockers have been discontinued -cardiology is following closely, possible temporary pacemaker today verses permanent pacemaker tomorrow -will place patient on CPAP/BiPAP overnight -continue to monitor close -transcutaneous pacer pads placed on the patient (2) Acute ST elevation myocardial infarction: Onset Date: 04/27/23 Code(s): I21.3 - ST elevation (STEMI) myocardial infarction of unspecified site Status: Acute Assessment and Plan: 04/27/2023: Anterior wall STEMI status post cardiac catheterization Conclusion:: 1.? ? Right coronary dominant circulation presenting with acute anterior wall [place] with 100% proximal occlusion of the large LAD. 2.? ? No significant circumflex or right coronary disease 3. ? successful but somewhat challenging revascularization requiring 3 drug-eluting stents from the midportion of the LAD back to the proximal segment of the artery to cover the lesion as well as ensure treating a dissection flap that was resulting from the initial pre dilatation of the target lesion. Aspirin, history statin, Brilinta, losartan. -COREG CURRENTLY ON HOLD due to sinus pause -continue hospital monitor 04/27/2023: Echocardiogram Summary ? 1. Technically difficult Exam because of obesity, Definity contrast utilized to improve Exam quality. ? 2. Severe Hypokinesis to Near akinesis Of the anterior Wall the midportion to the apex As well as of the septum. ? 3. Moderately reduced global systolic function. ? 4. Grade 1 diastolic noncompliance. ? 5. No significant valvular dysfunction. (3) COPD exacerbation: Code(s): J44.1 - Chronic obstructive pulmonary disease with (acute) exacerbation Status: Acute Assessment and Plan: Patient clearly has undiagnosed COPD from his exam, imaging and constant coughing. He appears to be in a COPD exacerbation -Diffuse wheezing -Increased bronchodilator frequency -Added solumedrol - did not tolerate apnea link -pulmonology is following the patient, not available over the weekend at [facility] which is the reason I was asked to consult on the patient (4) Smoking: Code(s): F17.200 - Nicotine dependence, unspecified, uncomplicated Status: Acute Assessment and Plan: Patient smokes 2-4 packs a day and has been smoking for 50 years. Patient was strongly counseled and encouraged to quit smoking (5) Hypertension: Code(s): I10 - Essential (primary) hypertension Status: Acute Assessment and Plan: Continue losartan, Coreg on hold due to sinus pauses (6) Lower extremity edema: Code(s): R60.0 - Localized edema Status: Acute Assessment and Plan: I suspect patient has pulmonary hypertension and cor pulmonale from extensive smoking He has lower extremity edema -echocardiogram as above Hold further IV fluids Patient has been on diuresis with Lasix and spironolactone per Cardiology will continue Plan DVT prophylaxis -Lovenox Nutrition -heart healthy diet Code Status - Full Code Critical care time spent: 38 minutes Discussed with cardiology, likely temporary pacemaker today or permanent pacemaker tomorrow Due to a high probability of clinically significant, life threatening deterioration, the patient required my highest level of preparedness to intervene emergently and I personally spent this critical care time d
--- NOTE | 2023-05-03 09:56 | PM.IMPN ---
Progress Note: A&P Assessment and Plan (1) Pneumonia: Code(s): J18.9 - Pneumonia, unspecified organism Status: Acute (2) COPD exacerbation: Code(s): J44.1 - Chronic obstructive pulmonary disease with (acute) exacerbation Status: Acute (3) Acute ST elevation myocardial infarction: Onset Date: 04/27/23 Code(s): I21.3 - ST elevation (STEMI) myocardial infarction of unspecified site Status: Acute (4) Coronary artery disease: Onset Date: 04/2023 Code(s): I25.10 - Atherosclerotic heart disease of [place] coronary artery without angina pectoris Status: Acute (5) Ischemic cardiomyopathy: Onset Date: 04/2023 Code(s): I25.5 - Ischemic cardiomyopathy Status: Acute (6) Lower extremity edema: Code(s): R60.0 - Localized edema Status: Acute (7) Hypertension: Code(s): I10 - Essential (primary) hypertension Status: Acute (8) Tobacco dependence: Code(s): F17.200 - Nicotine dependence, unspecified, uncomplicated Status: Acute Plan 62-year-old male smoker with suspected chronic obstructive pulmonary disease and hypertension whom the hospitalist service has been consulted for help managing his medical conditions. He was admitted to the hospital early 04/29/2023 Through the emergency department with an acute anterior wall ST-elevation myocardial infarction after presenting with several hours of chest pain. Troponin elevated from 0. 416 to 49 and peaked to more than 80. He was taken to the medical lab tech instructor where he was found to have 100% proximal occlusion the LAD status post 3 drug-eluting stents. Revascularization was complicated by a small dissection flap resulting from initial predilatation of the lesion. He has been without chest pain and is doing well in that regard. He reports nearly constant coughing the last couple of days, much worse than his chronic, smoker's cough. Chest x-ray showed bilateral pneumonia Echo with the mildly reduced LV systolic function at 35-40% with severe hypokinesis to near akinesis of the anterior wall in the midportion to the apex as well as the septum grade 1 diastolic dysfunction. DAPT with aspirin indefinitely and Brilinta for 1 year beta-robert ARB statin. Chest x-ray showed bilateral pneumonia and started on antibiotics Mildly hypoxic needing oxygen supplementation via nasal cannula continue to wean oxygen as tolerated Sinus pauses likely beta-robert related. Dose adjusted per Cardiology now discontinued as continue to have recurrent pauses. Plan for temporary pacer placement today Treated as COPD exacerbation currently on oral prednisone and IV Lasix daily IV Zosyn. Oxygen has been tapered down consulted CTA with no PE however was noted to have left lower lobe pneumonia. Also has emphysema. Switched to Solu Medrol for COPD exacerbation BNP 1420, venous duplex negative for DVT in lower extremities DVT prophylaxis Lovenox Subjective Date/time seen: 05/03/23 09:56 Interval history: 62-year-old male smoker with suspected chronic obstructive pulmonary disease and hypertension whom the hospitalist service has been consulted for help managing his medical conditions. He was admitted to the hospital early 04/29/2023 Through the emergency department with an acute anterior wall ST-elevation myocardial infarction after presenting with several hours of chest pain. Troponin elevated from 0. 416 to 49 and peaked to more than 80. He was taken to the medical lab tech instructor where he was found to have 100% proximal occlusion the LAD status post 3 drug-eluting stents. Revascularization was complicated by a small dissection flap resulting from initial predilatation of the lesion. He has been without chest pain and is doing well in that regard. He reports nearly constant coughing the last couple of days, much worse than his chronic, smoker's cough. Chest x-ray showed bilateral pneumonia Echo with the mildly reduced LV systolic function at 3
[2023-05-03] MEDS: methylPREDNISolone SOD SUCC 125 MG VIAL IV PUSH (10:04)
--- NOTE | 2023-05-03 10:23 | PM.PNCARD ---
Progress Note: A&P Assessment and Plan (1) Acute ST elevation myocardial infarction: Onset Date: 04/27/23 Code(s): I21.3 - ST elevation (STEMI) myocardial infarction of unspecified site Status: Acute Assessment and Plan: Presents with chest pain and EKG evidence of acute anterior wall [place]. angiogram revealed right coronary dominant circulation with 100% proximal occlusion of the large LAD. He is now s/p PCI to the LAD with KELLY x 3 from the midportion of the LAD back to the proximal segment of the artery to cover the lesion as well as ensure treating a dissection flap that was resulting from the initial pre dilatation of the target lesion. Echo shows overall mildly reduced LV systolic function with EF 35 - 40% with severe hypokinesis to near akinesis of the anterior wall in the midportion to the apex as well as of the septum. Grade I diastolic dysfunction. --DAPT with ASA in definitely and Brilinta for one year. --discontinued beta-robert. Continue ARB ARB --Continue statin --Risk factor modification for CAD including immediate smoking cessation --Referral to cardiac rehab (2) CAD (coronary artery disease): Code(s): I25.10 - Atherosclerotic heart disease of [place] coronary artery without angina pectoris Status: Acute Assessment and Plan: As above. Continue DAPT, statin. (3) Lower extremity edema: Code(s): R60.0 - Localized edema Status: Acute Assessment and Plan: States this has been persistent for ~5 years. Improving. --Will shift to p.o. furosemide --GENARO hose (4) Hypertension: Code(s): I10 - Essential (primary) hypertension Status: Acute Assessment and Plan: Presented with uncontrolled HTN --Remains elevated despite adjusting antihypertensive regimen --Continue losartan to 50mg daily ----continue spironolactone, ARB. (5) Smoking: Code(s): F17.200 - Nicotine dependence, unspecified, uncomplicated Status: Acute Assessment and Plan: Smoking cessation counseling. Patient states he intends to quit smoking. (6) COPD exacerbation: Code(s): J44.1 - Chronic obstructive pulmonary disease with (acute) exacerbation Status: Acute Assessment and Plan: Pulmonology consulted for additional assistance with management, discussed with Dr. Lozano - appreciate recommendations Pulmonology not in house this weekend - plan for overnight oximetry to evaluate for nocturnal O2 needs. Dr. Murphy is credit control clerk this weekend, please call her with questions regarding results/criteria for home O2/ordering home O2 that cannot be addressed by the hospitalist Will consult cardiac tech due to ongoing and significant shortness of breath/wheezing this in addition to sinus pauses (7) Sinus pause: Code(s): I45.5 - Other specified heart block Status: Acute Assessment and Plan: Will discontinue his carvedilol completely at this point. He is having significant and prolonged pauses including while awake. Longest pause being for 13 seconds. At this point, I have discussed with Dr. Krishan cruz who is in agreement to place a temporary pacemaker. Patient likely need a permanent pacemaker implantation tomorrow or before discharge. Obviously even if his sinus pauses and sinus arrest improves without beta-robert, ideally he should be on a beta-robert given his significant ischemic cardiomyopathy and coronary disease. He also may have sleep apnea/COPD which may be a contributor but regardless given the prolonged episodes, will proceed with plan as above. Subjective Date/time seen: 05/03/23 10:23 Interval history: Cardiology follow up for CAD, STEMI Feels well this morning. Echo just performed. Denies any chest pain. Has some shortness of breath and edema but no different than his baseline. Date of service 04/28/2023: Feels okay this morning. Does not have any specific cardiovascular complaints. Jose
[2023-05-03] MEDS: methylPREDNISolone SOD SUCC 40 MG VIAL IV PUSH ×2 (12:20→18:17)
--- NOTE | 2023-05-03 12:50 | WPDMODSED ---
Moderate Sedation Note-Pt Data Patient Data Diagnosis: prolonged sinus arrest Present Complaint: patient is here for STEMI a couple days ago but was noticed to have significant bradycardia overnight. Procedure to be performed/Plan: Temporal transvenous pacemaker Allergies Allergy/AdvReac Type Severity Reaction Status Date / Time No Known Allergies Allergy Verified 04/27/23 01:12 Home Medications Medication Instructions Recorded Confirmed Type albuterol sulfate 90 mcg/actuation 1 puff inhalation DAILY 04/27/23 04/27/23 History aerosol inhaler amlodipine 10 mg tablet 10 mg PO DAILY 04/27/23 04/27/23 History cyclobenzaprine 10 mg tablet 10 mg PO DAILY 04/27/23 04/27/23 History hydrochlorothiazide 50 mg tablet 50 mg DAILY 04/27/23 04/27/23 History Current Medications: Active Medications Acetaminophen (Acetaminophen 325 Mg Tablet) 650 mg PO Q6H PRN PRN Reason: Mild Pain (1-3) or Fever Albuterol/Ipratropium (Ipratropium 0.5 Mg/Albuterol Sulfate 2.5 Mg Ampul.Neb 3 Ml) 3 ml INHALATION Q4HRT [facility] Last Admin: 05/03/23 11:00 Dose: 3 ml Amlodipine Besylate (Amlodipine Besylate 5 Mg Tablet) 5 mg PO QAM [facility] Last Admin: 05/03/23 08:43 Dose: 5 mg Aspirin (Aspirin 81 Mg Chewable Tablet) 81 mg PO DAILY@0800 [facility] Last Admin: 05/03/23 08:42 Dose: 81 mg Enoxaparin Sodium (Enoxaparin 40 Mg/0.4 Ml Syringe) 40 mg SUB-Q DAILY [facility] Last Admin: 05/03/23 08:42 Dose: 40 mg Fluticasone/Umeclidinium/Vilanterol (Fluticasone/Umeclidin/Vilanter 100-62.5-25 Mcg Ellipta) 1 puff INHALATION Q12H [facility] Furosemide (Furosemide 40 Mg Tablet) 40 mg PO DAILY [facility] Last Admin: 05/03/23 08:42 Dose: 40 mg Guaifenesin (Guaifenesin 12 Hr 600 Mg Tabcr) 1,200 mg PO Q12HR [facility] Last Admin: 05/03/23 08:42 Dose: 1,200 mg Piperacillin/Tazobactam/Dextrose (Zosyn 3.375 Gm/Ns 50 Ml) 3.375 gm in 50 mls @ 100 mls/hr IVPB Q6HR [facility] Last Admin: 05/03/23 12:20 Dose: 100 mls/hr Losartan Potassium (Losartan Potassium 50 Mg Tablet) 50 mg PO DAILY [facility] Last Admin: 05/03/23 08:42 Dose: 50 mg Methylprednisolone Sodium Succinate (Methylprednisolone Sod Succ 40 Mg Vial) 40 mg IV PUSH Q6HR [facility] Stop: 05/04/23 06:01 Last Admin: 05/03/23 12:20 Dose: 40 mg Metoprolol Tartrate (Metoprolol Tartrate Inj 5 Mg/5 Ml Vial) 5 mg IV PUSH Q5M PRN PRN Reason: tachycardia Nitroglycerin (Nitroglycerin Sl 0.4 Mg Tablet) 0.4 mg SUBLINGUAL Q5MIN PRN PRN Reason: Chest Pain Rosuvastatin Calcium (Rosuvastatin 10 Mg Tablet) 20 mg PO DAILY [facility] Last Admin: 05/03/23 08:42 Dose: 20 mg Sodium Chloride (Saline 0.65% Raghavendra Soln 44 Ml Btl) 1 spray NASAL Q6HR PRN PRN Reason: Congestion Last Admin: 04/30/23 12:53 Dose: 1 spray Spironolactone (Spironolactone 25 Mg Tablet) 25 mg PO QAM [facility] Last Admin: 05/03/23 08:43 Dose: 25 mg Ticagrelor (Ticagrelor 90 Mg Tablet) 90 mg PO Q12HR [facility] Last Admin: 05/03/23 08:42 Dose: 90 mg Sedation/Anesthesia: No previous sedation/anesthesia problems (including family history). [facility] Past Medical History Medical History Acute ST elevation myocardial infarction (04/27/23) Coronary artery disease (04/2023) Hypertension Ischemic cardiomyopathy (04/2023) April 2023 echo: reduced LV systolic function with an EF 35 to 40%, severe hypokinesis to near akinesis of anterior wall, grade 1 diastolic dysfunction. Suspected chronic obstructive pulmonary disease based on initial evaluation Tobacco dependence Surgical History Surgical History History of cardiac catheterization (04/27/23) History of coronary artery stent placement (04/27/23) Drug-eluting stent x3 to the LAD. Family History Family History Father Acute myocardial infarction Cerebrovascular accident Diabetes mellitus Hypertension Mother Congestive heart failure Hypertension Social H
--- NOTE | 2023-05-03 12:52 | WPDHPUPDATE1 ---
History and Physical Update Update Date/Time: 05/03/23 12:52 History and Physical has been reviewed, including an updated exam of the patient. There are NO changes in the patient's condition. Risks, benefits, and alternatives have been discussed and questions answered. Patient agrees to proceed with procedure.
--- NOTE | 2023-05-03 13:38 | WPDCARDPROC ---
Cardiac Cath Procedure Note Date of procedure:: 05/03/23 Performing physician:: Kodi Nickerson MD Indication:: prolonged pauses during sleeping hours. Brief clinical history:: This 62-year-old patient with a STEMI to LAD couple days ago he was noticed to have 12 seconds pause is sleeping and with 10 seconds. metal robert was stopped but due to recurrent pauses temporary pacer was advised to be performed. Procedure Procedure performed:: 1- Moderate sedation that started at 1:18 p.m. 35 a total duration 17 minutes using 1 mg of Versed 25 mcg of fentanyl. The a registered nurse was vasiliy wallace. 2- insertion of temporary transvenous pacemaker through right IJ guided by ultrasound and by fluoroscopy. Sedation/Medication given:: See above Access site:: right IJ vein Estimated blood loss:: 5 cc Procedure note:: after informed consent patient was brought into laboratory mechanical technician where the right neck was prepped and draped in the usual manner. then 1% lidocaine was applied to the skin and then using ultrasound guidance the right IJ was entered using micropuncture needle. Position confirmed by x-ray. After that 6 Maltese sheath was inserted. Temporary pacemaker was inserted to the RV and testing the pacer was done. Right IJ was secured in place. Findings:: Insertion of temporary venous pacing Conclusion:: successful insertion of temporary transvenous pacemaker through right IJ vein. Assessment and Plan Assessment and plan (1) Sinus pause: Code(s): I45.5 - Other specified heart block Status: Acute Plan - Right IJ was secured in place. The rate was set at 30 and pacing voltage at 5 mV. - avoid AV joaquin blocking agents. - Evaluate overnight for AV pauses. - evaluate the need for pacemaker
[2023-05-04] VITALS (22 sets, daily range): BP systolic 104–151; BP diastolic 77–99; PULSE 78–100; RESP 16–28; TEMP 36.5–37; O2SAT 88–95
[2023-05-04] MEDS: IPRATROPIUM 0.5 MG/ALBUTEROL SULFATE 2.5 MG AMPUL.NEB 3 ML INHALATION ×5 (00:23→19:55)
[2023-05-04] MEDS: PIPERACILLN/TAZ 3.375GM/NS50ML 3.375 GM/50 ML BAG IVPB ×2 (00:47→05:21)
[2023-05-04] MEDS: methylPREDNISolone SOD SUCC 40 MG VIAL IV PUSH ×2 (00:47→05:22)
[2023-05-04 04:54] LABS: Basophils Percent Auto 0.1 % (0.2-1.2); Hematocrit 50.4 % (42.0-52.0); Hemoglobin 16.1 g/dL (14.0-18.0); Immature Granulocyte Absolute 0.08 K/mm3 (0.00-0.031); Immature Granulocyte Percent A 0.6 % (0-0.5); Lymphocytes Absolute Auto 0.67 K/mm3 (0.9-3.2); Mean Corpuscular HGB Conc 31.9 g/dl (32-36); Mean Corpuscular Hemoglobin 27.4 pg (26-34); Mean Corpuscular Volume 85.9 fl (80-100); Mean Platelet Volume 10.5 fl (7.4-10.4); Monocytes Absolute Auto 0.3 K/mm3 (0.1-0.6); Monocytes Percent Auto 1.9 % (2.6-8.5); Neutrophils Absolute Auto 12.4 K/mm3 (1.3-6.7); Neutrophils Percent Auto 92.4 % (45.5-73.1); Platelet Count Result 261 k/mm3 (150-375); Red Blood Count 5.87 M/mm3 (4.6-6.20); Red Cell Distribution Width 14.9 % (11.5-14.5); White Blood Count 13.5 K/mm3 (4.5-10.0)
[2023-05-04 05:07] LABS: Alanine Aminotransferase 106 U/L (6-50); Albumin Level 4.1 g/dL (3.5-5.1); Alkaline Phosphatase 79 U/L (38-126); Anion Gap 11 mmol/L (8-16); Aspartate Amino Transferase 49 U/L (17-59); Bilirubin,Total 0.9 mg/dL (0.2-1.3); Blood Urea Nitrogen 29 mg/dL (9-20); Carbon Dioxide 27 mmol/L (22-30); Chloride 104 mmol/L (98-107); Estimated CRCL calculation 97 ml/min; Estimated Glomerular Filt Rate > 60; Glucose 140 mg/dL (65-110); Magnesium 2.6 mg/dL (1.6-2.3); Phosphorus 3.5 mg/dL (2.5-4.5); Potassium 3.5 mmol/L (3.4-5.0); Sodium 142 mmol/L (137-145)
[2023-05-04 05:35] LABS: Thyroid Stimulating Hormone 0.791 uIU/mL (0.465-4.680)
[2023-05-04] MEDS: FUROSEMIDE 40 MG TABLET PO (07:59)
[2023-05-04] MEDS: ROSUVASTATIN 10 MG TABLET 20 MG PO (07:59)
[2023-05-04] MEDS: LOSARTAN POTASSIUM 50 MG TABLET PO (07:59)
[2023-05-04] MEDS: amLODIPine BESYLATE 5 MG TABLET PO (07:59)
[2023-05-04] MEDS: ASPIRIN 81 MG CHEWABLE TABLET PO (07:59)
[2023-05-04] MEDS: POTASSIUM CHLORIDE 20 MEQ PACKET (FOR LIQUID) 40 MEQ PO (07:59)
[2023-05-04] MEDS: guaiFENesin 12 HR 600 MG TABCR 1200 MG PO ×2 (07:59→20:09)
[2023-05-04] MEDS: SPIRONOLACTONE 25 MG TABLET PO (07:59)
[2023-05-04] MEDS: TICAGRELOR 90 MG TABLET PO ×2 (07:59→20:10)
--- NOTE | 2023-05-04 08:03 | WPDINTPN ---
Progress Note: A&P Assessment and Plan (1) Sinus pause: Code(s): I45.5 - Other specified heart block Status: Acute Assessment and Plan: Patient has had sinus pauses which started on 05/02/2023 with a 6 seconds pause. On 05/03/2023 patient had a 8 and 11 seconds pause, most of them have occurred at night when he is asleep, likely related to sleep apnea and or beta-robert, could be related to her recent myocardial infarction. One of the pauses occurred when he was on a bedside commode, which could be related to vasovagal issues, beta-robert, recent myocardial infarction. -beta-blockers have been discontinued -cardiology is following -05/02: Status post right IJ transvenous temporary pacemaker -05/03: patient was on CPAP overnight with no episodes of bradycardia, he did have some episodes in the evening prior to wearing the CPAP -possible permanent pacemaker today, will discuss with Cardiology. Patient is NPO (2) Acute ST elevation myocardial infarction: Onset Date: 04/27/23 Code(s): I21.3 - ST elevation (STEMI) myocardial infarction of unspecified site Status: Acute Assessment and Plan: 04/27/2023: Anterior wall STEMI status post cardiac catheterization Conclusion:: 1.? ? Right coronary dominant circulation presenting with acute anterior wall FL with 100% proximal occlusion of the large LAD. 2.? ? No significant circumflex or right coronary disease 3. ? successful but somewhat challenging revascularization requiring 3 drug-eluting stents from the midportion of the LAD back to the proximal segment of the artery to cover the lesion as well as ensure treating a dissection flap that was resulting from the initial pre dilatation of the target lesion. Aspirin, history statin, Brilinta, losartan. -COREG CURRENTLY ON HOLD due to sinus pause -continue vehicle monitor technician 04/27/2023: Echocardiogram Summary ? 1. Technically difficult Exam because of obesity, Definity contrast utilized to improve Exam quality. ? 2. Severe Hypokinesis to Near akinesis Of the anterior Wall the midportion to the apex As well as of the septum. ? 3. Moderately reduced global systolic function. ? 4. Grade 1 diastolic noncompliance. ? 5. No significant valvular dysfunction. (3) COPD exacerbation: Code(s): J44.1 - Chronic obstructive pulmonary disease with (acute) exacerbation Status: Acute Assessment and Plan: Patient clearly has undiagnosed COPD from his exam, imaging and constant coughing. He appears to be in a COPD exacerbation -Diffuse wheezing -Increased bronchodilator frequency -status post Solu-Medrol - did not tolerate apnea link -pulmonology is following the patient, not available over the weekend at [facility] which is the reason I was asked to consult on the patient (4) Smoking: Code(s): F17.200 - Nicotine dependence, unspecified, uncomplicated Status: Acute Assessment and Plan: Patient smokes 2-4 packs a day and has been smoking for 50 years. Patient was strongly counseled and encouraged to quit smoking (5) Hypertension: Code(s): I10 - Essential (primary) hypertension Status: Acute Assessment and Plan: Continue losartan, Coreg on hold due to sinus pauses (6) Lower extremity edema: Code(s): R60.0 - Localized edema Status: Acute Assessment and Plan: I suspect patient has pulmonary hypertension and cor pulmonale from extensive smoking He has lower extremity edema -echocardiogram as above Hold further IV fluids Patient has been on diuresis with Lasix and spironolactone per Cardiology, will continue Plan DVT prophylaxis -Lovenox Nutrition: NPO for possible pacemaker placement Code Status - Full Code Critical care time spent: 32 minutes Discussed with patient and family at bedside and updated them with patient's condition and plan of care. I answered all questions Due to a high probability of clinically significant, lif
[2023-05-04] MEDS: FLUTICASONE/UMECLIDIN/VILANTER 100-62.5-25 MCG ELLIPTA 1 PUFF INHALATION (08:19)
--- NOTE | 2023-05-04 09:01 | PCNWS ---
Weekly nutritional screen. Patient is tolerating current diet with adequate intake. NPO today for cards, 75-100% on previous Hear healthy diet. No weight loss reported. No nutritional needs at this time.
--- NOTE | 2023-05-04 11:13 | WPDMODSED ---
Moderate Sedation Note-Pt Data Patient Data Diagnosis: Coronary artery disease status post emergency LAD PCI in the setting of acute anterior wall CO last week Significant asystolic pauses necessitating implantation of temporary transvenous pacemaker Present Complaint: No complaint today Procedure to be performed/Plan: Implantation of permanent pacemaker Allergies Allergy/AdvReac Type Severity Reaction Status Date / Time No Known Allergies Allergy Verified 04/27/23 01:12 Home Medications Medication Instructions Recorded Confirmed Type albuterol sulfate 90 mcg/actuation 1 puff inhalation DAILY 04/27/23 04/27/23 History aerosol inhaler amlodipine 10 mg tablet 10 mg PO DAILY 04/27/23 04/27/23 History cyclobenzaprine 10 mg tablet 10 mg PO DAILY 04/27/23 04/27/23 History hydrochlorothiazide 50 mg tablet 50 mg DAILY 04/27/23 04/27/23 History Current Medications: Active Medications Acetaminophen (Acetaminophen 325 Mg Tablet) 650 mg PO Q6H PRN PRN Reason: Mild Pain (1-3) or Fever Albuterol/Ipratropium (Ipratropium 0.5 Mg/Albuterol Sulfate 2.5 Mg Ampul.Neb 3 Ml) 3 ml INHALATION Q4HRT [facility] Last Admin: 05/04/23 08:19 Dose: 3 ml Amlodipine Besylate (Amlodipine Besylate 5 Mg Tablet) 5 mg PO QAM [facility] Last Admin: 05/04/23 07:59 Dose: 5 mg Aspirin (Aspirin 81 Mg Chewable Tablet) 81 mg PO DAILY@0800 [facility] Last Admin: 05/04/23 07:59 Dose: 81 mg Enoxaparin Sodium (Enoxaparin 40 Mg/0.4 Ml Syringe) 40 mg SUB-Q DAILY [facility] Last Admin: 05/04/23 07:33 Dose: Not Given Fluticasone/Umeclidinium/Vilanterol (Fluticasone/Umeclidin/Vilanter 100-62.5-25 Mcg Ellipta) 1 puff INHALATION Q12H [facility] Last Admin: 05/04/23 08:20 Dose: Not Given Furosemide (Furosemide 40 Mg Tablet) 40 mg PO DAILY [facility] Last Admin: 05/04/23 07:59 Dose: 40 mg Guaifenesin (Guaifenesin 12 Hr 600 Mg Tabcr) 1,200 mg PO Q12HR [facility] Last Admin: 05/04/23 07:59 Dose: 1,200 mg Losartan Potassium (Losartan Potassium 50 Mg Tablet) 50 mg PO DAILY [facility] Last Admin: 05/04/23 07:59 Dose: 50 mg Nitroglycerin (Nitroglycerin Sl 0.4 Mg Tablet) 0.4 mg SUBLINGUAL Q5MIN PRN PRN Reason: Chest Pain Rosuvastatin Calcium (Rosuvastatin 10 Mg Tablet) 20 mg PO DAILY [facility] Last Admin: 05/04/23 07:59 Dose: 20 mg Sodium Chloride (Saline 0.65% Raghavendra Soln 44 Ml Btl) 1 spray NASAL Q6HR PRN PRN Reason: Congestion Last Admin: 04/30/23 12:53 Dose: 1 spray Spironolactone (Spironolactone 25 Mg Tablet) 25 mg PO QAM [facility] Last Admin: 05/04/23 07:59 Dose: 25 mg Ticagrelor (Ticagrelor 90 Mg Tablet) 90 mg PO Q12HR [facility] Last Admin: 05/04/23 07:59 Dose: 90 mg Sedation/Anesthesia: No previous sedation/anesthesia problems (including family history). [facility] Past Medical History Medical History Acute ST elevation myocardial infarction (04/27/23) Coronary artery disease (04/2023) Hypertension Ischemic cardiomyopathy (04/2023) April 2023 echo: reduced LV systolic function with an EF 35 to 40%, severe hypokinesis to near akinesis of anterior wall, grade 1 diastolic dysfunction. Suspected chronic obstructive pulmonary disease based on initial evaluation Tobacco dependence Surgical History Surgical History History of cardiac catheterization (04/27/23) History of coronary artery stent placement (04/27/23) Drug-eluting stent x3 to the LAD. Family History Family History Father Acute myocardial infarction Cerebrovascular accident Diabetes mellitus Hypertension Mother Congestive heart failure Hypertension Social History Social History Social History: Surrogate medical decision maker: Catherine Harris, mother. Code status: Full code. Smoking packs per day: 3 Smoking cigarettes per day: 60.0 Years smoked: 50 Smoking pack-years: 150.00 S
--- NOTE | 2023-05-04 11:52 | P.PNPL_ITS ---
Subjective Date/time seen: 05/04/23 11:52
--- NOTE | 2023-05-04 11:52 | PM.PNPUL ---
Subjective Date/time seen: 05/04/23 11:52
--- NOTE | 2023-05-04 14:24 | PM.IMPN ---
Progress Note: A&P Assessment and Plan (1) Pneumonia: Code(s): J18.9 - Pneumonia, unspecified organism Status: Acute (2) COPD exacerbation: Code(s): J44.1 - Chronic obstructive pulmonary disease with (acute) exacerbation Status: Acute (3) Acute ST elevation myocardial infarction: Onset Date: 04/27/23 Code(s): I21.3 - ST elevation (STEMI) myocardial infarction of unspecified site Status: Acute (4) Coronary artery disease: Onset Date: 04/2023 Code(s): I25.10 - Atherosclerotic heart disease of ak chin coronary artery without angina pectoris Status: Acute (5) Ischemic cardiomyopathy: Onset Date: 04/2023 Code(s): I25.5 - Ischemic cardiomyopathy Status: Acute (6) Lower extremity edema: Code(s): R60.0 - Localized edema Status: Acute (7) Hypertension: Code(s): I10 - Essential (primary) hypertension Status: Acute (8) Tobacco dependence: Code(s): F17.200 - Nicotine dependence, unspecified, uncomplicated Status: Acute Plan 62-year-old male smoker with suspected chronic obstructive pulmonary disease and hypertension whom the hospitalist service has been consulted for help managing his medical conditions. He was admitted to the hospital early 04/29/2023 Through the emergency department with an acute anterior wall ST-elevation myocardial infarction after presenting with several hours of chest pain. Troponin elevated from 0. 416 to 49 and peaked to more than 80. He was taken to the animal laboratory helper where he was found to have 100% proximal occlusion the LAD status post 3 drug-eluting stents. Revascularization was complicated by a small dissection flap resulting from initial predilatation of the lesion. He has been without chest pain and is doing well in that regard. He reports nearly constant coughing the last couple of days, much worse than his chronic, smoker's cough. Chest x-ray showed bilateral pneumonia Echo with the mildly reduced LV systolic function at 35-40% with severe hypokinesis to near akinesis of the anterior wall in the midportion to the apex as well as the septum grade 1 diastolic dysfunction. DAPT with aspirin indefinitely and Brilinta for 1 year beta-robert ARB statin. Chest x-ray showed bilateral pneumonia and started on antibiotics IV Zosyn. Finished antibiotics course Mildly hypoxic needing oxygen supplementation via nasal cannula continue to wean oxygen as tolerated Sinus pauses likely beta-robert related. Dose adjusted per Cardiology now discontinued as continue to have recurrent pauses. Status post temporary pacemaker implantation 05/03/2023. Plan for pulmonary and pacemaker implantation today. Could also be related to underlying obstructive sleep empirically placed on CPAP 05/03/2023 need outpatient sleep study Treated as COPD exacerbation currently on oral prednisone and IV Lasix daily IV Zosyn. Oxygen has been tapered down consulted CTA with no PE however was noted to have left lower lobe pneumonia. Also has emphysema. Switched to Solu Medrol for COPD exacerbation Suspected sleep apnea: Empiric CPAP at night. Need outpatient sleep study. BNP 1420, venous duplex negative for DVT in lower extremities DVT prophylaxis Lovenox Subjective Date/time seen: 05/04/23 14:24 Interval history: 62-year-old male smoker with suspected chronic obstructive pulmonary disease and hypertension whom the hospitalist service has been consulted for help managing his medical conditions. He was admitted to the hospital early 04/29/2023 Through the emergency department with an acute anterior wall ST-elevation myocardial infarction after presenting with several hours of chest pain. Troponin elevated from 0. 416 to 49 and peaked to more than 80. He was taken to the animal laboratory helper where he was found to have 100% proximal occlusion the LAD status post 3 drug-eluting stents. Revascularization was complicated by a small dissection flap resulting f
--- NOTE | 2023-05-04 14:39 | ECG_ITS ---
Measurements Intervals [place] Rate: 88 P: 65 TN: 148 QRS: 95 QRSD: 100 T: 92 QT: 386 QTc: 468 Interpretive Statements SINUS RHYTHM RIGHT AXIS DEVIATION POSSIBLE LEFT ATRIAL ENLARGEMENT ANTEROSEPTAL INFARCT, RECENT BASELINE ARTIFACT- I, III, AVL, AVF, V1-V6 ABNORMAL ECG COMPARED TO ECG 05/03/2023 03:01:04 NO SIGNIFICANT CHANGES Electronically Signed On 05-04-2023 17:00:13 CDT by Riaz Gonzalez D.O.
--- NOTE | 2023-05-04 14:41 | WPDCARDPROC ---
Cardiac Cath Procedure Note Date of procedure:: 05/04/23 Performing physician:: Albert Sandoval MD Indication:: sinus pauses following anterior wall mi Brief clinical history:: this is a 62-year-old man who was hospitalized last week with anterior wall DC and underwent emergency PCI of his occlusion of the proximal LAD. Still in the hospital it was noticed that he was having asystolic pauses of between 6 and 12 seconds. Beta-robert was reduced significantly but these pauses continue and for this reason implantation of the pacemaker has been recommended. Procedure Procedure performed:: Implantation of permanent dual-chamber Medtronic pacemaker device Sedation/Medication given:: Versed 2 mg Access site:: left subclavian vein Estimated blood loss:: 25 cc Procedure note:: patient was brought to the cardiac catheterization lab where the left anterior chest wall was prepped and draped in the usual fashion. Anesthesia was infiltrated inferior to the clavicle with 1% lidocaine. Following this incision was made in this area but from the midclavicular line to the deltopectoral sharp and blunt dissection was used to provide cutaneous hemostasis. A pacemaker pocket was then made inferior to the incision along the prepectoral fascial plane. This was packed with an antibiotic soaked 4 x 4. Following this attention was turned to venous access. a venogram was performed prior to draping the patient which had demonstrated a large vein of good quality. Despite this several puncture attempts failed to obtain venous access. I then placed the lower extremities up on a wedge pillow and following this the subclavian vein was punctured successfully. Despite this I was unable to perform to obtain a 2nd puncture so I implanted the pacemaker with a 1 puncture site technique. Using the access J wire that was in the venous circulation I placed a pacemaker safe sheath into the vein and through this SafeSheath a 2nd wire was placed through the same puncture site into the right atrium. The sheath was then withdrawn and placed over 1 of the wires which was then used to introduce the ventricular lead into the circulation. The stylet was withdrawn and a J-tip stylet was fashioned this was used to steer the lead through the RVF to the pulmonary artery position. a straight stylet was placed back into the lead was withdrawn and placed into the right ventricular apical position very close to the location of the temporary transvenous wire. The fixation screw was deployed. The analyzer was used appropriate pacing and sensing performed as was demonstrated. The sheath was then carefully peeled away under fluoroscopic visualization so the lead was not altered and position. A 2nd SafeSheath was then placed over the 2nd wire advanced into the venous circulation and used to place the atrial lead into the right atrial position. The stylet was withdrawn and a preformed atrial J stylet was placed into lead was maneuvered into the right atrial appendage position. The fixation screw was deployed and the analyzer was then used to test the lead once again appropriate pacing and sensing was demonstrated. The SafeSheath was then once again peeled away under fluoroscopic visualization assuring that the lead was not altered and position. Following this both leads were retested and good lead performance was demonstrated. The suture sleeves were then used to secure the leads to the base of the pocket using tools silk ties. The retained sponge was then removed from the pocket and the pocket was irrigated with antibiotic infused saline. Following this the pacemaker generator detailed below was connected to the leads using the torque wrench in the entire assembly was placed into the newly created pocket. The pocket was then closed in layers using 3-0 Vicryl in an interrupted fashion for the subcutaneous tissue and then 4-0 Vicryl in a running subcuticular fashion for the skin. There was a mod
[2023-05-04] MEDS: SODIUM CHLORIDE 0.9% IV 1,000 ML 50 ML IV CONT (15:36)
--- NOTE | 2023-05-04 16:36 | PCRCNOTE ---
RT entered patient's room to give 1400 breathing treatment, patient stated he would like to refuse this treatment due to just getting out of surgrey.
[2023-05-04] MEDS: ONDANSETRON INJ 4 MG/2 ML VIAL IV PUSH (20:08)
[2023-05-04] MEDS: ceFAZolin 1 GM/NS 50 ML 1 GM/50 ML BAG IVPB (20:09)
[2023-05-05] VITALS (26 sets, daily range): BP systolic 111–155; BP diastolic 70–84; PULSE 70–91; RESP 10–22; TEMP 36.2–36.8; O2SAT 88–99
[2023-05-05] MEDS: IPRATROPIUM 0.5 MG/ALBUTEROL SULFATE 2.5 MG AMPUL.NEB 3 ML INHALATION ×6 (00:34→20:18)
[2023-05-05 04:30] LABS: Basophils Percent Auto 0.2 % (0.2-1.2); Eosinophils Percent Auto 0.2 % (0-4.4); Hemoglobin 15.4 g/dL (14.0-18.0); Immature Granulocyte Absolute 0.07 K/mm3 (0.00-0.031); Immature Granulocyte Percent A 0.5 % (0-0.5); Lymphocytes Absolute Auto 1.19 K/mm3 (0.9-3.2); Lymphocytes Percent Auto 9.3 % (18.3-44.2); Mean Corpuscular HGB Conc 32.1 g/dl (32-36); Mean Corpuscular Hemoglobin 27.9 pg (26-34); Mean Platelet Volume 10.2 fl (7.4-10.4); Monocytes Percent Auto 8.1 % (2.6-8.5); Neutrophils Absolute Auto 10.4 K/mm3 (1.3-6.7); Neutrophils Percent Auto 81.7 % (45.5-73.1); Platelet Count Result 243 k/mm3 (150-375); Red Blood Count 5.52 M/mm3 (4.6-6.20); White Blood Count 12.8 K/mm3 (4.5-10.0)
[2023-05-05] MEDS: ceFAZolin 1 GM/NS 50 ML 1 GM/50 ML BAG IVPB (04:38)
[2023-05-05 04:40] LABS: Alanine Aminotransferase 128 U/L (6-50); Albumin Level 3.7 g/dL (3.5-5.1); Alkaline Phosphatase 69 U/L (38-126); Anion Gap 2 mmol/L (8-16); Aspartate Amino Transferase 59 U/L (17-59); Bilirubin,Total 0.6 mg/dL (0.2-1.3); Blood Urea Nitrogen 41 mg/dL (9-20); Calcium 8.5 mg/dL (8.4-10.2); Carbon Dioxide 33 mmol/L (22-30); Chloride 108 mmol/L (98-107); Estimated CRCL calculation 92 ml/min; Estimated Glomerular Filt Rate > 60; Glucose 115 mg/dL (65-110); Magnesium 2.5 mg/dL (1.6-2.3); Potassium 3.7 mmol/L (3.4-5.0); Sodium 143 mmol/L (137-145)
[2023-05-05] MEDS: FLUTICASONE/UMECLIDIN/VILANTER 100-62.5-25 MCG ELLIPTA 1 PUFF INHALATION (08:18)
[2023-05-05] MEDS: amLODIPine BESYLATE 5 MG TABLET PO (08:29)
[2023-05-05] MEDS: ASPIRIN 81 MG CHEWABLE TABLET PO (08:29)
[2023-05-05] MEDS: FUROSEMIDE 40 MG TABLET PO (08:30)
[2023-05-05] MEDS: SPIRONOLACTONE 25 MG TABLET PO (08:30)
[2023-05-05] MEDS: LOSARTAN POTASSIUM 50 MG TABLET PO (08:30)
[2023-05-05] MEDS: guaiFENesin 12 HR 600 MG TABCR 1200 MG PO ×2 (08:30→20:37)
[2023-05-05] MEDS: ROSUVASTATIN 10 MG TABLET 20 MG PO (08:30)
[2023-05-05] MEDS: TICAGRELOR 90 MG TABLET PO ×2 (08:30→20:37)
[2023-05-05] MEDS: carvediloL 12.5 MG TABLET PO ×2 (10:09→20:37)
--- NOTE | 2023-05-05 13:23 | PM.PNCARD ---
Progress Note: A&P Assessment and Plan (1) Acute ST elevation myocardial infarction: Onset Date: 04/27/23 Code(s): I21.3 - ST elevation (STEMI) myocardial infarction of unspecified site Status: Acute Assessment and Plan: Presents with chest pain and EKG evidence of acute anterior wall MS. angiogram revealed right coronary dominant circulation with 100% proximal occlusion of the large LAD. He is now s/p PCI to the LAD with KELLY x 3 from the midportion of the LAD back to the proximal segment of the artery to cover the lesion as well as ensure treating a dissection flap that was resulting from the initial pre dilatation of the target lesion. Echo shows overall mildly reduced LV systolic function with EF 35 - 40% with severe hypokinesis to near akinesis of the anterior wall in the midportion to the apex as well as of the septum. Grade I diastolic dysfunction. --DAPT with ASA in definitely and Brilinta for one year. --discontinued beta-robert. Continue ARB --Continue statin --Risk factor modification for CAD including immediate smoking cessation --Referral to cardiac rehab (2) Sinus pause: Code(s): I45.5 - Other specified heart block Status: Acute Assessment and Plan: Now s/p DC pacemaker placement yesterday. (3) Pneumonia: Code(s): J18.9 - Pneumonia, unspecified organism Status: Acute (4) COPD exacerbation: Code(s): J44.1 - Chronic obstructive pulmonary disease with (acute) exacerbation Status: Acute (5) Coronary artery disease: Onset Date: 04/2023 Code(s): I25.10 - Atherosclerotic heart disease of [place] coronary artery without angina pectoris Status: Acute Assessment and Plan: As above. Continue DAPT, statin. (6) Ischemic cardiomyopathy: Onset Date: 04/2023 Code(s): I25.5 - Ischemic cardiomyopathy Status: Acute Assessment and Plan: EF 35 - 40%. (7) Lower extremity edema: Code(s): R60.0 - Localized edema Status: Acute Assessment and Plan: Improved. Reduce furosemide to 20mg daily (8) Hypertension: Code(s): I10 - Essential (primary) hypertension Status: Acute Assessment and Plan: Presented with uncontrolled HTN --Now at goal --Continue losartan to 50mg daily --continue spironolactone 25mg daily (9) Tobacco dependence: Code(s): F17.200 - Nicotine dependence, unspecified, uncomplicated Status: Acute Assessment and Plan: Smoking cessation Plan Home O2 eval, repeat apnea link tonight (has been using CPAP here, needs repeat apnea link for insurance approval of CPAP) . Plan for d/c tomorrow Subjective Date/time seen: 05/05/23 13:23 Interval history: Cardiology follow up for CAD, STEMI Feels well this morning. Echo just performed. Denies any chest pain. Has some shortness of breath and edema but no different than his baseline. Date of service 04/28/2023: Feels okay this morning. Does not have any specific cardiovascular complaints. Date of service 04/29/2023: Patient states he feels ?the same. ? States he is always wheezy and his breathing is about normal for him. Later he admitted that he was more labored than usual. No chest pain. O2 sats are in the upper 80s when he is speaking, still requiring O2 nasal cannula, now up to 7 L. Telemetry: NSR. Date of service 05/01/2023: Doing better today, Off O2. No cardiovascular complaints. Eager to go home. Date of service 05/02/2023: No chest pain. Breathing is better. Wants to go home. Had several pauses however last night longest of which was 6 seconds. Heart rate as low as in the 30s. Date of service 05/03/2023: Patient continued to have pauses last night. He had pause of up to 13 seconds. Generally occurring in the overnight hours but reportedly had an 11 s pause while awake. No syncope, presyncope. No chest pain. Visibly short of breath Date of service 04/10
[2023-05-05] MEDS: SALINE 0.65% NAS SOLN 44 ML BTL 1 SPRAY NASAL (13:47)
--- NOTE | 2023-05-05 13:54 | PCRCNOTE ---
Home O2 eval on hold, pt is on bedrest for approx an hour, then will go get radiology testing. Physical Therapy will be in to work with patient and RN will call me when they arrive to work with them to check sats during exertion. Due to the patient recent bedrest, PT will assess activity level and needs.
--- NOTE | 2023-05-05 14:06 | PM.IMPN ---
Progress Note: A&P Assessment and Plan (1) Pneumonia: Code(s): J18.9 - Pneumonia, unspecified organism Status: Acute (2) COPD exacerbation: Code(s): J44.1 - Chronic obstructive pulmonary disease with (acute) exacerbation Status: Acute (3) Acute ST elevation myocardial infarction: Onset Date: 04/27/23 Code(s): I21.3 - ST elevation (STEMI) myocardial infarction of unspecified site Status: Acute (4) Coronary artery disease: Onset Date: 04/2023 Code(s): I25.10 - Atherosclerotic heart disease of [place] coronary artery without angina pectoris Status: Acute (5) Ischemic cardiomyopathy: Onset Date: 04/2023 Code(s): I25.5 - Ischemic cardiomyopathy Status: Acute (6) Lower extremity edema: Code(s): R60.0 - Localized edema Status: Acute (7) Hypertension: Code(s): I10 - Essential (primary) hypertension Status: Acute (8) Tobacco dependence: Code(s): F17.200 - Nicotine dependence, unspecified, uncomplicated Status: Acute Plan 62-year-old male smoker with suspected chronic obstructive pulmonary disease and hypertension whom the hospitalist service has been consulted for help managing his medical conditions. He was admitted to the hospital early 04/29/2023 Through the emergency department with an acute anterior wall ST-elevation myocardial infarction after presenting with several hours of chest pain. Troponin elevated from 0. 416 to 49 and peaked to more than 80. He was taken to the factory laborer where he was found to have 100% proximal occlusion the LAD status post 3 drug-eluting stents. Revascularization was complicated by a small dissection flap resulting from initial predilatation of the lesion. He has been without chest pain and is doing well in that regard. He reports nearly constant coughing the last couple of days, much worse than his chronic, smoker's cough. Chest x-ray showed bilateral pneumonia Echo with the mildly reduced LV systolic function at 35-40% with severe hypokinesis to near akinesis of the anterior wall in the midportion to the apex as well as the septum grade 1 diastolic dysfunction. DAPT with aspirin indefinitely and Brilinta for 1 year beta-robert ARB statin. Chest x-ray showed bilateral pneumonia and started on antibiotics IV Zosyn. Finished antibiotics course Mildly hypoxic needing oxygen supplementation via nasal cannula continue to wean oxygen as tolerated. Home oxygen evaluation at discharge Sinus pauses likely beta-robert related. Dose adjusted per Cardiology now discontinued as continue to have recurrent pauses. Status post temporary pacemaker implantation 05/03/2023. Plan for pulmonary and pacemaker implantation today. Could also be related to underlying obstructive sleep empirically placed on CPAP 05/03/2023 need outpatient sleep study. Treated as COPD exacerbation currently on oral prednisone and IV Lasix daily IV Zosyn. Oxygen has been tapered down consulted CTA with no PE however was noted to have left lower lobe pneumonia. Also has emphysema. Switched to Solu Medrol for COPD exacerbation. start prednisone taper. on trelegy and will dc on trelegy, albuterol and duoneb prn. Suspected sleep apnea: Empiric CPAP at night. Need outpatient sleep study. he has been using CPAP at night here. will discuss with pulmonary BNP 1420, venous duplex negative for DVT in lower extremities DVT prophylaxis Lovenox Subjective Date/time seen: 05/05/23 14:06 Interval history: 62-year-old male smoker with suspected chronic obstructive pulmonary disease and hypertension whom the hospitalist service has been consulted for help managing his medical conditions. He was admitted to the hospital early 04/29/2023 Through the emergency department with an acute anterior wall ST-elevation myocardial infarction after presenting with several hours of chest pain. Troponin elevated from 0. 416 to 49 and peaked to more than 80. He wa
[2023-05-05] MEDS: predniSONE 20 MG TABLET 40 MG PO (15:59)
[2023-05-06] VITALS (16 sets, daily range): BP systolic 121–135; BP diastolic 78–89; PULSE 66–88; RESP 10–28; TEMP 36.6–36.9; O2SAT 91–98
--- NOTE | 2023-05-06 04:57 | PCRCNOTE ---
Apnea Link complete.
[2023-05-06] MEDS: IPRATROPIUM 0.5 MG/ALBUTEROL SULFATE 2.5 MG AMPUL.NEB 3 ML INHALATION ×2 (07:13→10:53)
[2023-05-06] MEDS: FLUTICASONE/UMECLIDIN/VILANTER 100-62.5-25 MCG ELLIPTA 1 PUFF INHALATION (07:13)
[2023-05-06 08:10] LABS: Alpha-1-Antitrypsin, QN 166 mg/dL (83-199)
[2023-05-06] MEDS: SPIRONOLACTONE 25 MG TABLET PO (08:27)
[2023-05-06] MEDS: TICAGRELOR 90 MG TABLET PO (08:27)
[2023-05-06] MEDS: predniSONE 20 MG TABLET 40 MG PO (08:27)
[2023-05-06] MEDS: guaiFENesin 12 HR 600 MG TABCR 1200 MG PO (08:27)
[2023-05-06] MEDS: LOSARTAN POTASSIUM 50 MG TABLET PO (08:27)
[2023-05-06] MEDS: carvediloL 12.5 MG TABLET PO (08:27)
[2023-05-06] MEDS: amLODIPine BESYLATE 5 MG TABLET PO (08:28)
[2023-05-06] MEDS: ASPIRIN 81 MG CHEWABLE TABLET PO (08:28)
[2023-05-06] MEDS: FUROSEMIDE 20 MG TABLET PO (08:28)
[2023-05-06] MEDS: ROSUVASTATIN 10 MG TABLET 20 MG PO (08:28)
--- NOTE | 2023-05-06 09:04 | PM.DS ---
DS: Admitting Diagnosis Discharge Date 05/06/2023 Admitting Diagnosis STEMI DS: Discharge Diagnosis Discharge Diagnosis (1) Acute ST elevation myocardial infarction: Onset Date: 04/27/23 Code(s): I21.3 - ST elevation (STEMI) myocardial infarction of unspecified site Status: Acute (2) Sinus pause: Code(s): I45.5 - Other specified heart block Status: Acute (3) Ischemic cardiomyopathy: Onset Date: 04/2023 Code(s): I25.5 - Ischemic cardiomyopathy Status: Acute (4) COPD exacerbation: Code(s): J44.1 - Chronic obstructive pulmonary disease with (acute) exacerbation Status: Acute DS: Summary Hospital Course Reason for hospitalization: STEMI Hospital Course: Patient presented with an acute anterior wall NE. Angiogram revealed right coronary dominant circulation with 100% proximal occlusion of the large LAD.? He is now s/p PCI to the LAD with EKLLY x 3 from the midportion of the LAD back to the proximal segment of the artery to cover the lesion as well as ensure treating a dissection flap that was resulting from the initial pre dilatation of the target lesion. Echo shows overall mildly reduced LV systolic function with EF 35 - 40% with severe hypokinesis to near akinesis of the anterior wall in the midportion to the apex as well as of the septum.? Grade I diastolic dysfunction. Patient to be on DAPT with ASA and Brilinta for at least 1 year. Patient had significant sinus pauses during the hospitalization and underwent implantation of a dual-chamber pacemaker. He was also treated for a COPD exacerbation. Time Spent with Patient Time attestation: Total time spent providing and/or coordinating discharge services: Exam Const: General: comfortable and no acute distress HENMT: Mouth: Yes moist mucous membranes Eyes: General: appearance normal, both eyes and all related structures Sclera: sclerae normal Resp: Effort & Inspection: normal respiratory effort Cardio: Rate: regular rate Rhythm: regular rhythm Skin: General skin exam: normal color Psych: Mental Status: mental status grossly normal Affect: normal affect DS: Data Data Completed and Pending Labs on day of discharge: Labs from last 24 hours 05/02/23 03:58 [id number] Discharge Plan Discharge Attending physician on discharge: Saqib Garduno Consulting providers: Tawny Avina; Anna Burroughs; Albert Lozano Discharging Clinician: Saqib Garduno Anticipated Discharge Date/Time: 05/06/23 09:02 Patient Disposition: Home, Self-Care Activity: may shower Diet: heart healthy Wound Care Instructions: follow printed instructions and other - see discharge instructions Discharge Instructions: [facility] [address] [place] [address] DISCHARGE INSTRUCTIONS - POST PCI Activity 1. No driving until 05/03/23 2. No lifting, pushing or pulling more than 10 pounds for 1 week. 3. No strenuous exercise or activity (including sexual activity) until you are released to do so. 4. May shower but no tub baths or swimming pool for 1 week. Avoid commercial hot tubs. Medications DO NOT STOP YOUR MEDICATIONS ONLY YOUR SWITCH OPERATORS SUPERVISOR CAN STOP THE FOLLOWING MEDICATIONS - PLEASE CALL THE OFFICE WITH QUESTIONS. *Aspirin *Ticagrelor (Brilinta) *Atorvastatin *Losartan *Coreg Important Reminders 1. Keep your stent card in your wallet at all times 2. Follow
--- NOTE | 2023-05-06 10:06 | HOMEO2EVAL ---
Evaluation was performed at [facility] Home Oxygen Evaluation RC: Home Oxygen (O2) Evaluation Start: 05/05/23 12:25 Freq: ONCE Status: Active Protocol: RPE Activity Type Activity Date Activity User E-sign Co-sign Detail Recorded Client Recorded Date Recorded By Document 05/06/23 09:35 DJO [email or web address] 05/06/23 10:00 DJO Document 05/06/23 09:40 [email or web address] [email or web address] 05/06/23 10:05 DJO Document 05/06/23 09:50 [email or web address] [email or web address] 05/06/23 10:05 DJO 05/06/23 05/06/23 05/06/23 09:35 09:40 09:50 Home O2 Evaluation [Oxygen] -Test Phase Resting Exercise Resting -Oxygen Delivery Room Air Room Air Room Air [Pulse Oximetry] -Pulse Oximetry (90-100 %) 96 97 97 [Pulse Rate] -Pulse Rate (60-100 beats/min) 77 88 78 [Charges] -Evaluation Charges O2 Evaluation by Pulmonary
--- NOTE | 2023-05-06 10:07 | PCRCNOTE ---
HOME O2 EVAL COMPLETE, NO REQUIREMENTS
--- NOTE | 2023-05-06 12:35 | PM.IMPN ---
Progress Note: A&P Assessment and Plan (1) Pneumonia: Code(s): J18.9 - Pneumonia, unspecified organism Status: Acute Assessment and Plan: Chest x-ray showed bilateral pneumonia. Blood cultures negative. Was started on IV antibiotics and completed a course. Follow-up chest x-ray yesterday shows minimal bibasilar airspace opacities consistent with atelectasis versus pneumonia. Suspect this is just residual from treated pneumonia. He did not qualify for home oxygen. (2) COPD exacerbation: Code(s): J44.1 - Chronic obstructive pulmonary disease with (acute) exacerbation Status: Acute Assessment and Plan: Patient is daily smoker. He probably has underlying COPD. Patient was wheezing related to COPD which could also be related to the pneumonia and/or fluid overload (but felt less likely) Trelegy inhalers has been started. Currently on bronchodilators. Prednisone added. Will continue current treatment plan. (3) Acute ST elevation myocardial infarction: Onset Date: 04/27/23 Code(s): I21.3 - ST elevation (STEMI) myocardial infarction of unspecified site Status: Acute Assessment and Plan: Patient with acute anterior wall ST-elevation myocardial infarction after presenting with several hours of chest pain. Troponin peaked to more than 80. 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 Revascularization was complicated by a small dissection flap resulting from initial predilatation of the lesion. Now chest pain free Continue Brilinta, Crestor, aspirin, Coreg. (4) Coronary artery disease: Onset Date: 04/2023 Code(s): I25.10 - Atherosclerotic heart disease of [place] coronary artery without angina pectoris Status: Acute Assessment and Plan: As above (5) Ischemic cardiomyopathy: Onset Date: 04/2023 Code(s): I25.5 - Ischemic cardiomyopathy Status: Acute Assessment and Plan: Echocardiogram shows severe hypokinesis to akinesis of the anterior wall to the midportion of the apex as well as the septum. He has EF of 35-40% and grade 1 diastolic dysfunction. Clinically appears euvolemic. Continue Lasix, Coreg, Aldactone and Cozaar. (6) Hypertension: Code(s): I10 - Essential (primary) hypertension Status: Acute Assessment and Plan: Blood pressure remains well controlled. Continue current treatment plan (7) Tobacco dependence: Code(s): F17.200 - Nicotine dependence, unspecified, uncomplicated Status: Acute Assessment and Plan: Patient was educated about the benefits of smoking cessation Plan Code status - full DVT prophylaxis Lovenox Subjective Date/time seen: 05/06/23 12:35 Interval history: 62yo male with HTN, tobacco abuse and suspected COPD here for STEMI whom the hospitalist service was consulted for help managing his medical conditions. Assuming care. Chart reviewed. Slept well last night. No chest pain. No pain at the pacemaker site. Still has a ?rattle? and has a productive cough of white sputum. Rehab was recommended but patient refused per nursing staff. Exam Narrative: AF 98.0 129/78 78 19 91% ra Gen - NARD Chest - mild expiratory wheeze. Left upper dressing is clean, dry and intact CV - RRR S1/S2. Tele showing no significant dysrhythmias Abd - Soft, NT/ND, Positive BS Ext - No pedal edema. Gaurang hose in place Psych - Nml mood and affect Skin - Warm and dry Objective Data Vital Signs Vital Signs: Vital Signs - 24 hr 05/05/23 14:00 05/05/23 16:00 05/05/23 16:00 Temperature 98.2 F Pulse Rate 76 72 72 Respiratory Rate 21 H Blood Pressure 130/83 Pulse Oximetry 93 Oxygen Delivery Oxygen Flow Rate Fraction of Inspired Oxygen 05/05/23 16:17 05/05/23 16:24 05/05/23 18:00 Temperature Pulse Rate 78 70 79 Respirat
--- NOTE | 2023-05-06 14:51 | PC.NURSE ---
Discharged home 05/06/2023 at 1445pm.
== END 2023-05-06 14:45 | disposition home or self-care (01) | DRG 242 ==
LOC: ANHED 01:20 → ANHICU 01:22 → ANHIMU 05-01 06:19 → ANHICU 05-03 00:20
PROVIDERS: Family Medicine; Internal Medicine; Internal Medicine Cardiovascular Disease; Internal Medicine Pulmonary Disease; Admitting Provider Specialist; Emergency Provider Emergency Medicine; PCP Internal Medicine; Visit Provider Internal Medicine
PROC: 4A023N7 Measurement of Cardiac Sampling and Pressure, Left Heart, Percutaneous Approach (ICD-10-PCS; CPT 93452; principal; 2023-04-27 01:35)
PROC: 027036Z Dilation of Coronary Artery, One Artery with Three Drug-eluting Intraluminal Devices, Percutaneous Approach (ICD-10-PCS; 2023-04-27 01:35)
PROC: 5A1223Z Performance of Cardiac Pacing, Continuous (ICD-10-PCS; CPT 33210; principal; 2023-05-03 12:45)
PROC: 0JH606Z Insertion of Pacemaker, Dual Chamber into Chest Subcutaneous Tissue and Fascia, Open Approach (ICD-10-PCS; CPT 33208; principal; 2023-05-04 13:00)
DX: I21.09 ST elevation (STEMI) myocardial infarction involving other coronary artery of anterior wall (principal); I25.42 Coronary artery dissection; J18.9 Pneumonia, unspecified organism; T82.898A Other specified complication of vascular prosthetic devices, implants and grafts, initial encounter; J44.1 Chronic obstructive pulmonary disease with (acute) exacerbation; J44.0 Chronic obstructive pulmonary disease with (acute) lower respiratory infection; Z68.42 Body mass index [BMI] 45.0-49.9, adult; I45.5 Other specified heart block; I10 Essential (primary) hypertension; I25.10 Atherosclerotic heart disease of native coronary artery without angina pectoris; I25.5 Ischemic cardiomyopathy; E66.01 Morbid (severe) obesity due to excess calories; R60.0 Localized edema; F17.210 Nicotine dependence, cigarettes, uncomplicated; Z20.822 Contact with and (suspected) exposure to COVID-19
CPT/HCPCS: 33208; 33210; 36415; 36600; 71045; 71046; 71275; 80048; 80053; 80061; 82103; 82104; 82805; 83690; 83735; 83880; 84100; 84443; 84484; 85025; 85027; 85380; 85610; 85730; 86850; 86900; 86901; 87040; 87637; 87641; 93005; 93458; 93970; 94003; 94618; 94640; 94660; 94667; 94762; 96374; 96375; 97161; 97530; 99285; A9270; C1725; C1769; C1779; C1785; C1874; C1887; C1894; C8929; C9606; J0360; J0583; J0690; J1644; J1650; J1940; J2250; J2270; J2305; J2405; J2543; J2920; J2930; J3010; J3370; J7030; J7040; J7512; Q9957; Q9967

== ENCOUNTER 2023-07-01 13:44 | Emergency (ER) | payer MEDICARE, MEDICAID, SELFPAY ==
--- NOTE | ~2023-07-01 | US_ITS ---
EXAMINATION: US venous doppler LE RT DATE: 07/01/2023 17:54 INDICATION: Lower limb swelling and erythema TECHNIQUE: Grayscale ultrasound images without and with compression and Doppler ultrasound images of the right lower extremity veins were obtained. COMPARISON: None. FINDINGS: The visualized portions of right common femoral vein, profunda (deep) femoral vein, femoral vein, pop liteal vein, posterior tibial veins, peroneal veins and greater saphenous vein outflow are patent. IMPRESSION: 1. No deep venous thrombosis in the right lower limb. Reviewed, dictated and finalized at location A.
--- NOTE | ~2023-07-01 | XR_ITS ---
EXAMINATION: XR ankle RT 2V DATE: 07/01/2023 17:31 INDICATION: Right medial malleolar pain TECHNIQUE: Anteroposterior and lateral views of the right ankle were obtained. COMPARISON: None. FINDINGS: Alignment is normal. No fracture. Joint spaces are normal. No evident right ankle joint effusion. Sma ll Achilles calcaneal spur. No cortical erosions or periosteal reaction. There is marked soft tissue swelling about the right ankle and visualized foot. IMPRESSION: 1. Prominent nonspecific soft tissue swelling about the right foot and ankle. No acute osseous abnorm ality. Reviewed, dictated and finalized at location A. IMPRESSION: 1. Prominent nonspecific soft tissue swelling about the right foot and ankle. N o acute osseous abnormality.
--- NOTE | ~2023-07-01 | XR_ITS ---
EXAMINATION: XR chest 1V portable DATE: 07/01/2023 17:19 INDICATION: Congestive heart failure. TECHNIQUE: A single frontal view of the chest was obtained on 2 radiographs. COMPARISON: Chest 2 views 05/05/2023, chest CT 05/01/2023 FINDINGS: There are lucencies in the upper lungs, consistent with emphysema. There is mild scarring a t left lung apex. There is mild atelectasis at the lung bases. No pleural effusion or pneumothorax. T he heart size is normal. There is a left chest wall pacer with leads in the right atrium and right ve ntricle. IMPRESSION: 1. Emphysema. 2. Mild atelectasis at the lung bases. Reviewed, dictated and finalized at location A.
[2023-07-01 13:45] VITALS: BP 168/99; PULSE 87; RESP 20; TEMP 36.4; O2SAT 100
--- NOTE | 2023-07-01 16:27 | ECG_ITS ---
SEE SCANNED COPY FOR CONFIRMED REPORT MTDD
[2023-07-01 16:32] VITALS: BP 159/99; PULSE 92; RESP 24; O2SAT 93
[2023-07-01 16:42] LABS: Basophils Absolute Auto 0.1 K/mm3 (0.0-0.1); Basophils Percent Auto 0.7 % (0.2-1.2); Eosinophils Absolute Auto 0.7 K/mm3 (0-0.3); Eosinophils Percent Auto 5.1 % (0-4.4); Hematocrit 44.9 % (42.0-52.0); Hemoglobin 14.8 g/dL (14.0-18.0); Immature Granulocyte Absolute 0.06 K/mm3 (0.00-0.031); Immature Granulocyte Percent A 0.4 % (0-0.5); Lymphocytes Absolute Auto 1.91 K/mm3 (0.9-3.2); Mean Corpuscular Hemoglobin 28.6 pg (26-34); Mean Corpuscular Volume 86.7 fl (80-100); Mean Platelet Volume 9.7 fl (7.4-10.4); Monocytes Absolute Auto 0.9 K/mm3 (0.1-0.6); Monocytes Percent Auto 6.4 % (2.6-8.5); Neutrophils Percent Auto 73.4 % (45.5-73.1); Platelet Count Result 164 k/mm3 (150-375); Red Blood Count 5.18 M/mm3 (4.6-6.20); Red Cell Distribution Width 14.9 % (11.5-14.5); White Blood Count 13.6 K/mm3 (4.5-10.0)
[2023-07-01 16:52] LABS: INR 0.9; Prothrombin Time 12.9 Seconds (11.1-14.7)
[2023-07-01 16:53] LABS: Partial Thromboplastin Time 27.9 Seconds (22.3-36.8)
[2023-07-01 16:54] LABS: Alanine Aminotransferase 31 U/L (6-50); Albumin Level 4.6 g/dL (3.5-5.1); Alkaline Phosphatase 89 U/L (38-126); Anion Gap 8 mmol/L (4-12); Aspartate Amino Transferase 23 U/L (17-59); Bilirubin,Total 0.6 mg/dL (0.2-1.3); Blood Urea Nitrogen 20 mg/dL (9-20); Calcium 8.8 mg/dL (8.4-10.2); Carbon Dioxide 28 mmol/L (22-30); Chloride 101 mmol/L (98-107); Estimated CRCL calculation 94 ml/min; Estimated Glomerular Filt Rate > 60; Glucose 101 mg/dL (65-110); Potassium 4.2 mmol/L (3.4-5.0); Sodium 137 mmol/L (137-145)
[2023-07-01 17:03] LABS: NT Pro B Type Natriuretic Pept 632 pg/mL (19.9-100); Troponin I < 0.012 ng/mL (0.000-0.034)
[2023-07-01 17:32] VITALS: BP 164/105; PULSE 92; RESP 27; O2SAT 98
[2023-07-01 18:02] VITALS: BP 166/106; PULSE 91; RESP 22; O2SAT 86
--- NOTE | 2023-07-01 18:03 | ED.EXTPRO ---
HPI - Extremity Problem General Chief complaint: Extremity Problem,Nontraumatic Stated complaint: r leg swelling Time Seen by Provider: 07/01/23 16:49 Source: patient and family () Mode of arrival: ambulatory Limitations: no limitations History of Present Illness HPI Narrative: Patient presents with bilateral leg swelling though worse on the right than the left. He also developed redness and swelling and pain at his medial right ankle today which limited his ability to walk as it was difficult to bear weight. No trauma. He states at baseline he has an abnormal gait and walks on his toes since childhood with his hips tilted. There was also report of groin pain but he states he was a stiffness when he moved his leg that since resolved. PCP is through [facility]; won't be able to be seen until first appointment in September. Transportation Mechanic is Dr. Lozano. Had a pacemaker placed in April after a ND. 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 Requesting refills of Lasix 40mg daily as he is runnign low on this medication. Also needs albuterol inhaler refilled and nebulizer formulation refilled in addition to Coreg. No shortness of breath or chest pain. Related Data Home Medications Medication Instructions Recorded Confirmed cyclobenzaprine 10 mg tablet 10 mg PO DAILY 04/27/23 04/27/23 Allergies Allergy/AdvReac Type Severity Reaction Status Date / Time No Known Allergies Allergy Verified 04/27/23 01:12 [facility] Past Medical History Medical History (Updated 07/02/23 @ 23:38 by Marybel Paez MD) Acute ST elevation myocardial infarction (04/27/23) Coronary artery disease (04/2023) History of heart failure History of sciatica Hypertension Ischemic cardiomyopathy (04/2023) April 2023 echo: reduced LV systolic function with an EF 35 to 40%, severe hypokinesis to near akinesis of anterior wall, grade 1 diastolic dysfunction. Pacemaker Suspected chronic obstructive pulmonary disease based on initial evaluation Tobacco dependence Surgical History Surgical History History of cardiac catheterization (04/27/23) History of coronary artery stent placement (04/27/23) Drug-eluting stent x3 to the LAD. Family History Family History Father Acute myocardial infarction Cerebrovascular accident Diabetes mellitus Hypertension Mother Congestive heart failure Hypertension Social History Social History Social History: Surrogate medical decision maker: Catherine Harris, mother. Code status: Full code. Smoking packs per day: 3 Smoking cigarettes per day: 60.0 Years smoked: 50 Smoking pack-years: 150.00 Smoking status: Heavy tobacco smoker Tobacco type: cigarettes Second hand tobacco smoke exposure: Yes Alcohol intake: never Substance use: never Do You Feel Safe in your Home?: Yes Lack of Transportation: No Lack of Food: Never True Current Housing: I Have Housing Concerned About Future Housing: No Difficulty Paying Gas/Electric Bills: No Difficulty Paying for Meds: No Currently Unemployed: No Education: Trade/Vocational Certificate Difficulty w/ Childcare or Family Care: No Spiritual care concerns: No Exam Narrative: GENERAL: Well-appearing, well-nourished, and in no acute distress. HEAD: Normocephalic, atraumatic. EYES: Non injected, non icteric ENT: Nares clear, no rhinorrhea or epistaxis. NECK: Supple. CHEST: Speaking in full sentences. No respiratory distress. HEART: Regular rate and rhythm. . ABDOMEN: Soft, nondistended. Obese. : Right groin without erythema, induration, tenderness to palpation or significant lymphadenopathy. EXTREMITIES: Normal range of motion. Bilateral lower extrem
[2023-07-01 18:07] LABS: Uric Acid 9.5 mg/dL (3.5-8.5)
[2023-07-01 18:32] VITALS: BP 152/79; PULSE 91; RESP 24
[2023-07-01] MEDS: IBUPROFEN 600 MG TABLET PO (19:29)
[2023-07-01] MEDS: COLCHICINE 0.6 MG TABLET 1.2 MG PO (19:29)
[2023-07-01] MEDS: HYDROcodone/acetaminophen (*CRX) 5-325 MG TABLET 1 TAB PO (19:29)
[2023-07-01 19:30] VITALS: BP 145/92; PULSE 90; RESP 20; O2SAT 99
== END 2023-07-01 19:30 | disposition home or self-care (01) ==
PROVIDERS: Emergency Medicine; Emergency Provider Student in an Organized Health Care Education/Training Program; PCP Internal Medicine
DX: R60.0 Localized edema (principal); M10.9 Gout, unspecified; D72.829 Elevated white blood cell count, unspecified; I25.2 Old myocardial infarction; I25.10 Atherosclerotic heart disease of native coronary artery without angina pectoris; I50.9 Heart failure, unspecified; I11.0 Hypertensive heart disease with heart failure; I25.5 Ischemic cardiomyopathy; F17.210 Nicotine dependence, cigarettes, uncomplicated; Z95.5 Presence of coronary angioplasty implant and graft; Z95.0 Presence of cardiac pacemaker; J43.9 Emphysema, unspecified
CPT/HCPCS: 36415; 71045; 73600; 80053; 83880; 84484; 84550; 85025; 85610; 85730; 93005; 93971; 99284; A9270